=== PATIENT | male | born 1935 | race Caucasian/White ===

== ENCOUNTER 2016-11-11 08:56 | Day surgery (SDC) | payer MEDICARE, BC ==
[~2016-11-11 08:56] MED LIST: FLU Vacc QS 2017-18 (6mos UP)/PF 60 MCG/0.5 ML Syringe IM ONE; Metoclopramide 10 MG/2 ML SDV IV PRN; Sodium Chloride 0.9% 1,000 ML IV SCH; Sodium Chloride 0.9% 10 ML Syringe FLUSH PRN
[2016-11-11] MEDS ORDERED: Propofol 200 MG/20 ML SDV ONE (10:35)
[2016-11-11 11:24] VITALS: BP 138/80
--- NOTE | 2016-11-11 15:01 | OR ---
DATE OF OPERATION: 11/11/2016 PREOPERATIVE DIAGNOSIS: Colon cancer screening. POSTOPERATIVE DIAGNOSIS: Colon cancer screening. PROCEDURE: Colonoscopy with biopsy and polypectomy. ANESTHESIA: MAC. ESTIMATED BLOOD LOSS: Minimal. COMPLICATIONS: None. INDICATIONS FOR PROCEDURE: The patient is an 81-year-old male, who has had history of weight loss over the past 6 months. The patient otherwise denies any change in bowel habits. Last had colonoscopy approximately 10 years ago, which was normal per patient. DESCRIPTION OF PROCEDURE: Informed consent was obtained from the patient. The patient was taken to the operating room, placed on the tablet in left lateral decubitus position. Monitored anesthesia care was applied. Digital rectal exam revealed no rectal masses, good tone. Colonoscope was then advanced through the anus and directed towards the cecum. Did reach the cecum identified by the appendiceal orifice and ileocecal valve. The patient did have a small sessile polyp near the ileocecal valve, which was removed with cold forceps polypectomy. Colonoscope was then withdrawn. 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 No other masses. No polyps. No areas of inflammation or ischemia were identified. Random rectal biopsy was taken in the rectum. Retroflexion was performed in the rectum and was unremarkable. Colonoscope was then removed. 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 RECOMMENDATIONS: We will follow up biopsies and recommend repeat colonoscopy in 5 years due to polyp. MARIZA /[id number]
== END 2016-11-11 12:30 | disposition home or self-care (01) ==
LOC: LB.SDS 08:56
PROVIDERS: ATTEND Surgery
DX: Z12.11 Encounter for screening for malignant neoplasm of colon (principal); K63.5 Polyp of colon; K63.89 Other specified diseases of intestine; Z88.0 Allergy status to penicillin; Z79.4 Long term (current) use of insulin; Z79.899 Other long term (current) drug therapy
CPT/HCPCS: 45380; 88305; J2704; J7040

== ENCOUNTER 2017-03-24 18:34 | Emergency (ER) | payer MEDICARE, BC ==
--- NOTE | 2017-03-24 19:36 | EDM.PDOC ---
ED HPI GENERAL MEDICAL PROBLEM - General Chief Complaint: General Stated Complaint: WEAKNESS Time Seen by Provider: 03/24/17 19:25 Source of Information: Reports: Patient History Limitations: Reports: No Limitations - History of Present Illness INITIAL COMMENTS - FREE TEXT/NARRATIVE: 81 yr male presents with a fall outside of his home. States he was going down 4 stairs at home and kind of just sat down. States no pain after his fall. States he take Methotrexate for arthritis. States he has been feeling dizzy for last couple of days and did have some cough and congestion for a couple weeks. - Related Data Allergies Allergy/AdvReac Type Severity Reaction Status Date / Time No Known Allergies Allergy Verified 11/10/16 16:14 Home Meds: Home Meds Methotrexate [Methotrexate] 1 injection IM WEEKLY 11/10/16 [History] Past Medical History HEENT History: Reports: Impaired Vision Musculoskeletal History: Reports: Arthritis - Infectious Disease History Infectious Disease History: Reports: Chicken Pox - Past Surgical History GI Surgical History: Reports: Colonoscopy, Hernia Repair/Other, Polypectomy Musculoskeletal Surgical History: Reports: None Social & Family History - Family History Family Medical History: Noncontributory - Tobacco Use Smoking Status *Q: Never Smoker - Caffeine Use Caffeine Use: Reports: None - Recreational Drug Use Recreational Drug Use: No ED ROS GENERAL - Review of Systems Review Of Systems: See Below Constitutional: Reports: Weakness HEENT: Reports: Glasses Respiratory: Reports: Cough Cardiovascular: Reports: No Symptoms GI/Abdominal: Reports: No Symptoms Musculoskeletal: Reports: Other (states no pain from fall) Skin: Reports: No Symptoms Neurological: Reports: Weakness, Other (States he tends to fall forward or gets a little dizzy with sitting up.) ED EXAM, GENERAL - Physical Exam Exam: See Below Exam Limited By: No Limitations General Appearance: Alert, No Apparent Distress Ears: Normal Canal, Hearing Grossly Normal, Normal TMs Throat/Mouth: Normal Voice, No Airway Compromise Head: Atraumatic, Normocephalic Neck: Normal Inspection, Supple, Non-Tender Respiratory/Chest: No Respiratory Distress, Lungs Clear, Normal Breath Sounds, Other (dry hacky cough noted) Cardiovascular: Regular Rate, Rhythm GI/Abdominal: Soft, Non-Tender Extremities: Normal Range of Motion, Non-Tender, No Pedal Edema Neurological: Alert, Oriented, Normal Cognition Course - Orders/Labs/Meds Orders: Active Orders 24 hr Category Date Time Status Chest 2V [CR] Stat Exams 03/24/17 19:31 Taken UA W/MICROSCOPIC [URIN] Stat Lab 03/24/17 20:47 Ordered Labs: Laboratory Tests 03/24/17 03/24/17 Range/Units 20:05 20:05 WBC 7.5 (4.0-11.0) K/uL RBC 4.32 L (4.50-6.50) M/uL Hgb 13.8 (13.0-18.0) g/dL Hct 41.1 (40.0-54.0) % MCV 95 (76-96) fL MCH 31.9 (27.0-32.0) pg MCHC 33.6 (31.0-35.0) g/dL RDW 13.7 (11.0-16.0) % Plt Count 194 (150-400) K/uL MPV 8.6 (6.0-10.0) fL Neut % (Auto) 83.6 H (45.0-70.0) % Lymph % (Auto) 6.7 L (20.0-40.0) % [place] % (Auto) 8.9 (3.0-10.0) % Eos % (Auto) 0.7 L (1.0-5.0) % Baso % (Auto) 0.1 (0.0-0.5) % Neut # (Auto) 6.23 (2.00-7.50) K/uL Lymph # (Auto) 0.50 L (1.50-4.00) K/uL [place] # (Auto) 0.66 (0.20-0.80) K/uL Eos # (Auto) 0.05 (0.04-0.40) K/uL Baso # (Auto) 0.01 L (0.02-0.10) K/uL Sodium 139 (136-145) mmol/L Potassium 4.2 (3.5-5.1) mmol/L Chloride 103 (98-107) mmol/L Carbon Dioxide 26.6 (21.0-32.0) mmol/L Anion Gap 13.6 (5.0-15.0) mmol/L BUN 13 (8-26) mg/dL Creatinine 1.16 D (0.70-1.30) mg/dL Est Cr Clr Drug Dosing TNP Estimated GFR (MDRD) > 60 (>60) MLS/MIN BUN/Creatinine Ratio 11.2 (6-25) Glucose 112 H (74-100) mg/dL Calcium 8.9 (8.5-10.1) mg/dL Total Bilirubin 0.6 (0.0-1.0) mg/dL AST 21 (15-37) U/L ALT 15 (12-78) U/L Alkaline Phosphatase 65 (46-116) U/L Total Protein 7.5 (6.4-8.2) g/dL Albumin 3.6 (3.4-5.0) g/dL Globulin 3.9 (2.2-4.2) g/dL Albumin/Globulin Ratio 0.9 (0.8-2.0) - Re-Assessments/Exams Free Text/Narrative Re-Assessment/Exam: 03/24/17 20:55 Chest x-ray completed and results viewed with comparison to previous x-ray. Good expansion noted. Lab results reviewed with no elevation in WBC, hgb normal and CMP normal. 03/24/17 21:02 Urine sample is without infection noted. Some ketones noted. Recommend taking Tylenol for temperature. Increase fluids and try to have more frequent snacks or meals or ensure. RTC next week for follow-up or sooner if symptoms increase or worsen. Departure - Departure Time of Disposition: 21:00 Disposition: Home, Self-Care 01 Condition: Good Clinical Impression: Dizziness, Fall (on) (from) other stairs and steps, initial encounter - Discharge Information Referrals: PCP,None [Primary Care Provider] - Forms: ED Department Discharge - My Orders Last 24 Hours: My Active Orders 03/24/17 19:31 Chest 2V [CR] Stat 03/24/17 20:47 UA W/MICROSCOPIC [URIN] Stat - Assessment/Plan Last 24 Hours: My Active Orders 03/24/17 19:31 Chest 2V [CR] Stat 03/24/17 20:47 UA W/MICROSCOPIC [URIN] Stat
--- NOTE | 2017-03-25 09:02 | CR ---
DATE OF SERVICE: 03/24/17 CLINICAL DATA: cough PA AND LATERAL CHEST: Comparison is made to a prior exam dated 07/01/16. The heart size is normal. The aorta is calcified and ectatic. The pulmonary vasculature does appear mildly prominent suggesting mild pulmonary venous congestion or fluid overload. There are scattered reticular opacities throughout both lungs. There are subtle nodular densities within the right mid lung laterally. Chest CT is recommended to further evaluate these. The lungs are otherwise clear. No pneumothorax. No pleural effusions. [id number] [facility]
== END 2017-03-24 21:02 | disposition home or self-care (01) ==
LOC: LB.ED 18:34
DX: R42 Dizziness and giddiness (principal); W10.9XXA Fall (on) (from) unspecified stairs and steps, initial encounter
CPT/HCPCS: 36415; 71046; 80053; 81001; 85025; 99285; A0425; A0429

== ENCOUNTER 2017-03-25 19:05 | Inpatient (IN) | payer MEDICARE, BC ==
[2017-03-25] MEDS ORDERED: Sodium Chloride 0.9% 1,000 ML IV SCH (20:30)
--- NOTE | 2017-03-25 20:44 | EDM.PDOC ---
ED HPI GENERAL MEDICAL PROBLEM - General Chief Complaint: General Stated Complaint: fell at home Time Seen by Provider: 03/25/17 19:30 Source of Information: Reports: Patient, EMS, Family History Limitations: Reports: No Limitations - History of Present Illness INITIAL COMMENTS - FREE TEXT/NARRATIVE: This is an 81yo M who fell and was unable to get back up. Patient is alert and oriented but when he gets up he feels weak and his legs give away. He was in the ER last night for the same symptoms. Tonight he is worse and has a fever. Patient denies any injury, no pain, no shortness of breath, no chest pain no other symptoms but weakness. He states his symptoms have been ongoing for about 1 week. Onset: Gradual Duration: Week(s): (1), Getting Worse Location: Reports: Generalized Severity: Severe Improves with: Reports: None Worsens with: Reports: Movement Associated Symptoms: Reports: Fever/Chills - Related Data Allergies Allergy/AdvReac Type Severity Reaction Status Date / Time No Known Allergies Allergy Verified 03/25/17 19:24 Home Meds: Home Meds Methotrexate [Methotrexate] 1 injection IM WEEKLY 11/10/16 [History] Past Medical History HEENT History: Reports: Impaired Vision, Other (See Below) Other HEENT History: wears glasses Cardiovascular History: Reports: None Respiratory History: Reports: Pneumonia, Recurrent Gastrointestinal History: Reports: Other (See Below) Other Gastrointestinal History: Having constipation for a couple of months now Genitourinary History: Reports: None Musculoskeletal History: Reports: Arthritis Endocrine/Metabolic History: Reports: None Hematologic History: Reports: None - Infectious Disease History Infectious Disease History: Reports: Chicken Pox, Measles - Past Surgical History GI Surgical History: Reports: Colonoscopy, Hernia Repair/Other, Polypectomy Musculoskeletal Surgical History: Reports: None Social & Family History - Family History Family Medical History: Noncontributory - Tobacco Use Smoking Status *Q: Never Smoker Second Hand Smoke Exposure: No - Caffeine Use Caffeine Use: Reports: Coffee, Soda, Tea - Recreational Drug Use Recreational Drug Use: No ED ROS GENERAL - Review of Systems Review Of Systems: ROS reveals no pertinent complaints other than HPI. ED EXAM, GENERAL - Physical Exam Exam: See Below Exam Limited By: No Limitations General Appearance: Alert, WD/WN, No Apparent Distress Eye Exam: Bilateral Eye: EOMI, PERRL Ears: Normal External Exam Nose: Normal Inspection Throat/Mouth: Normal Inspection Head: Atraumatic, Normocephalic Neck: Normal Inspection, Supple, Non-Tender Respiratory/Chest: No Respiratory Distress, Decreased Breath Sounds, Rales Cardiovascular: Normal Peripheral Pulses, Regular Rate, Rhythm Peripheral Pulses: 2+: Dorsalis Pedis (L), Dorsalis Pedis (R) GI/Abdominal: Normal Bowel Sounds Back Exam: Normal Inspection Extremities: Normal Inspection, Normal Range of Motion, Non-Tender, No Pedal Edema, Normal Capillary Refill Neurological: Alert, Oriented, CN II-XII Intact, Other (weakness on standing, decrease in oxygen saturation) Psychiatric: Normal Affect, Normal Mood Skin Exam: Warm, Dry, Intact Course - Orders/Labs/Meds Orders: Active Orders 24 hr Category Date Time Status Patient Status [ADT] Routine ADT 03/25/17 20:33 Ordered Bedrest Bedside Commode [RC] ASDIRECTED Care 03/25/17 20:33 Ordered EKG Documentation Completion [RC] ASDIRECTED Care 03/25/17 19:33 Active Height and Weight [RC] DAILY Care 03/25/17 20:33 Ordered Intake and Output [RC] QSHIFT Care 03/25/17 20:34 Ordered Oxygen Therapy [RC] PRN Care 03/25/17 20:33 Ordered Vital Signs [RC] Q4H Care 03/25/17 20:33 Ordered Heart Healthy Diet [DIET] Diet 03/25/17 Breakfast Ordered Chest 1V Frontal [CR] Stat Exams 03/25/17 19:16 Taken UA W/MICROSCOPIC [URIN] Stat Lab 03/25/17 19:16 Uncollected Dextrose 5%-Lactated Ringers @ 75 MLS/HR(1000ml) Med 03/25/17 20:45 Ordered Dextrose 5%-Lactated Ringers 1,000 ml IV ASDIRECTED EKG 12 Lead [EK] Routine Ther 03/25/17 19:33 Ordered Medication Orders Dextrose/Lactated Ringer's (Dextrose 5%-Lactated Ringers) 1,000 mls @ 75 mls/ hr IV ASDIRECTED [facility] Labs: Laboratory Tests 03/25/17 03/25/17 03/25/17 Range/Units 19:25 19:25 20:08 WBC 7.6 (4.0-11.0) K/uL RBC 4.24 L (4.50-6.50) M/uL Hgb 13.5 (13.0-18.0) g/dL Hct 40.5 (40.0-54.0) % MCV 96 (76-96) fL MCH 31.8 (27.0-32.0) pg MCHC 33.3 (31.0-35.0) g/dL RDW 13.7 (11.0-16.0) % Plt Count 192 (150-400) K/uL MPV 8.4 (6.0-10.0) fL Neut % (Auto) 87.0 H (45.0-70.0) % Lymph % (Auto) 5.7 L (20.0-40.0) % [place] % (Auto) 7.1 (3.0-10.0) % Eos % (Auto) 0.1 L (1.0-5.0) % Baso % (Auto) 0.1 (0.0-0.5) % Neut # (Auto) 6.58 (2.00-7.50) K/uL Lymph # (Auto) 0.43 L (1.50-4.00) K/uL [place] # (Auto) 0.54 (0.20-0.80) K/uL Eos # (Auto) 0.01 L (0.04-0.40) K/uL Baso # (Auto) 0.01 L (0.02-0.10) K/uL Sodium 140 (136-145) mmol/L Potassium 3.9 (3.5-5.1) mmol/L Chloride 103 (98-107) mmol/L Carbon Dioxide 26.5 (21.0-32.0) mmol/L Anion Gap 14.4 (5.0-15.0) mmol/L BUN 15 (8-26) mg/dL Creatinine 1.18 (0.70-1.30) mg/dL Est Cr Clr Drug Dosing TNP Estimated GFR (MDRD) 59 L (>60) MLS/MIN BUN/Creatinine Ratio 12.7 (6-25) Glucose 138 H (74-100) mg/dL Calcium 9.0 (8.5-10.1) mg/dL Total Bilirubin 0.6 (0.0-1.0) mg/dL AST 33 (15-37) U/L ALT 19 (12-78) U/L Alkaline Phosphatase 60 (46-116) U/L Troponin I < 0.017 (0.000-0.060) ng/mL B-Natriuretic Peptide 409 (0-450) pg/mL Total Protein 7.4 (6.4-8.2) g/dL Albumin 3.5 (3.4-5.0) g/dL Globulin 3.9 (2.2-4.2) g/dL Albumin/Globulin Ratio 0.9 (0.8-2.0) Meds: Medications Generic Name Dose Route Start Last Admin Trade Name Freq PRN Reason Stop Dose Admin Dextrose/Lactated Ringer's 1,000 mls @ 75 mls/hr 03/25/17 20:45 Dextrose 5%-Lactated Ringers IV ASDIRECTED FEI Discontinued Medications Generic Name Dose Route Start Last Admin Trade Name Freq PRN Reason Stop Dose Admin Sodium Chloride 1,000 mls @ 75 mls/hr 03/25/17 20:30 03/25/17 20:15 Normal Saline IV 75 mls/hr ASDIRECTED FEI Administration Departure - Departure Time of Disposition: 21:00 Disposition: Admitted As Inpatient 65 Condition: Undetermined Clinical Impression: Influenza A, Weakness generalized, Dehydration Fall Qualifiers: Encounter type: initial encounter Qualified Code(s): W19.XXXA - Unspecified fall, initial encounter - Discharge Information Referrals: PCP,None [Primary Care Provider] - - My Orders Last 24 Hours: My Active Orders 03/25/17 19:16 Chest 1V Frontal [CR] Stat UA W/MICROSCOPIC [URIN] Stat 03/25/17 19:33 EKG Documentation Completion [RC] ASDIRECTED EKG 12 Lead [EK] Routine 03/25/17 20:33 Patient Status [ADT] Routine Bedrest Bedside Commode [RC] ASDIRECTED Height and Weight [RC] DAILY Oxygen Therapy [RC] PRN Vital Signs [RC] Q4H 03/25/17 20:34 Intake and Output [RC] QSHIFT 03/25/17 20:45 Dextrose 5%-Lactated Ringers @ 75 MLS/HR(1000ml) Dextrose 5%-Lactated Ringers 1 ,000 ml IV ASDIRECTED 03/25/17 Breakfast Heart Healthy Diet [DIET] - Assessment/Plan Last 24 Hours: My Active Orders 03/25/17 19:16 Chest 1V Frontal [CR] Stat UA W/MICROSCOPIC [URIN] Stat 03/25/17 19:33 EKG Documentation Completion [RC] ASDIRECTED EKG 12 Lead [EK] Routine 03/25/17 20:33 Patient Status [ADT] Routine Bedrest Bedside Commode [RC] ASDIRECTED Height and Weight [RC] DAILY Oxygen Therapy [RC] PRN Vital Signs [RC] Q4H 03/25/17 20:34 Intake and Output [RC] QSHIFT 03/25/17 20:45 Dextrose 5%-Lactated Ringers @ 75 MLS/HR(1000ml) Dextrose 5%-Lactated Ringers 1 ,000 ml IV ASDIRECTED 03/25/17 Breakfast Heart Healthy Diet [DIET]
[2017-03-25] MEDS: Oseltamivir 75 MG Cap PO SCH (22:41)
[2017-03-26] MEDS ORDERED: Acetaminophen 500 MG Tab PO ONE (00:27)
[2017-03-26] MEDS: Oseltamivir 75 MG Cap PO SCH ×2 (08:08→19:37)
--- NOTE | 2017-03-26 10:52 | CR ---
DATE OF SERVICE: 03/25/17 CLINICAL DATA: temp PA CHEST: Comparison made to a prior exam dated 03/24/17. The heart size is stable. There are densities in both lung bases on today's exam consistent with basilar atelectasis or infiltrate. Pneumonia should be considered. There are also subtle nodular densities in the right mid lung laterally. Again, these could be related to pneumonia. Followup exam is recommended to see if they resolve. The exam is otherwise unchanged from the prior. No pneumothorax. No pleural effusion. [id number] [facility]
--- NOTE | 2017-03-26 12:10 | PCM.PN ---
- General Info Date of Service: 03/26/17 Subjective Update: Patient states he feels better. He remains weak in bed. He denies any pain or malaise. He states he just feels weak. No other symptoms, no fever, no chest pain, no shortness of breath. Functional Status: Reports: Pain Controlled, Tolerating Diet - Review of Systems General: Reports: Weakness HEENT: Reports: No Symptoms Pulmonary: Reports: No Symptoms Cardiovascular: Reports: No Symptoms Gastrointestinal: Reports: No Symptoms Genitourinary: Reports: No Symptoms Musculoskeletal: Reports: No Symptoms Neurological: Reports: No Symptoms Psychiatric: Reports: No Symptoms - Patient Data Vitals - Most Recent: Last Vital Signs Temp 36.9 C 03/26/17 08:00 Pulse 59 L 03/26/17 08:00 Resp 20 03/26/17 08:00 BP 107/60 03/26/17 08:00 Pulse Ox 93 L 03/26/17 08:00 Weight - Most Recent: 64.864 kg I&O - Last 24 Hours: Intake & Output 03/25/17 03/26/17 03/26/17 22:59 06:59 14:59 Intake Total 900 Output Total 300 Balance 600 Lab Results Last 24 Hours: Laboratory Results - last 24 hr 03/25/17 Range/Units 21:35 Urine Color Yellow Urine Appearance Clear (CLEAR) Urine pH 6.5 (5.0-8.0) Ur Specific [place] 1.020 (1.003-1.030) Urine Protein Negative (NEGATIVE) mg/dL Urine Glucose (UA) Negative (NEGATIVE) mg/dL Urine Ketones 15 H (NEGATIVE) mg/dL Urine Occult Blood Negative (NEGATIVE) Urine Nitrite Negative (NEGATIVE) Urine Bilirubin Negative (NEGATIVE) Urine Urobilinogen 0.2 (0.2-1.0) E.U./dL Ur Leukocyte Esterase Negative (NEGATIVE) Urine RBC Not seen /HPF Urine WBC 0-5 H /HPF Ur Squamous Epith Cells Moderate /HPF Med Orders - Current: Current Medications Dextrose/Lactated Ringer's (Dextrose 5%-Lactated Ringers) 1,000 mls @ 75 mls/ hr IV ASDIRECTED FEI Oseltamivir Phosphate (Tamiflu) 75 mg PO BID FEI Last Admin: 03/26/17 08:08 Dose: 75 mg Discontinued Medications Acetaminophen (Tylenol Extra Strength) 500 mg PO ONETIME ONE Stop: 03/26/17 00:28 Last Admin: 03/26/17 00:33 Dose: 500 mg Sodium Chloride (Normal Saline) 1,000 mls @ 75 mls/hr IV ASDIRECTED [facility] Last Admin: 03/25/17 20:15 Dose: 75 mls/hr - Exam Quality Assessment: Supplemental Oxygen General: Alert, Oriented, Cooperative HEENT: Pupils Equal, Pupils Reactive, EOMI Neck: Supple Lungs: Clear to Auscultation, Normal Respiratory Effort Cardiovascular: Regular Rate, Regular Rhythm Back Exam: Normal Inspection Extremities: Normal Inspection Peripheral Pulses: 2+: Dorsalis Pedis (L), Dorsalis Pedis (R) Skin: Warm, Dry, Intact Neurological: No New Focal Deficit Psy/Mental Status: Alert, Normal Affect, Normal Mood - Problem List & Annotations (1) Dehydration SNOMED Code(s): 90724266 Code(s): E86.0 - DEHYDRATION Status: Acute (2) Dizziness SNOMED Code(s): 629880523 Code(s): R42 - DIZZINESS AND GIDDINESS Status: Acute (3) Fall SNOMED Code(s): 4921105 Code(s): W19.XXXA - UNSPECIFIED FALL, INITIAL ENCOUNTER Status: Acute Qualifiers: Encounter type: initial encounter Qualified Code(s): W19.XXXA - Unspecified fall, initial encounter (4) Influenza A SNOMED Code(s): 143051342 Code(s): J10.1 - FLU DUE TO OTH IDENT INFLUENZA VIRUS W OTH RESP MANIFEST Status: Acute (5) Weakness generalized SNOMED Code(s): 44108838 Code(s): R53.1 - WEAKNESS Status: Acute - Problem List Review Problem List Initiated/Reviewed/Updated: Yes - My Orders Last 24 Hours: My Active Orders 03/25/17 20:45 Dextrose 5%-Lactated Ringers 1,000 ml IV ASDIRECTED Oseltamivir [Tamiflu] 75 mg PO BID 03/25/17 21:03 Urinary Catheter Assessment [RC] ASDIRECTED 03/25/17 21:15 Insert Fernandez Catheter [Insert Urinary Catheter] [OM.PC] Q24H 03/26/17 12:09 PT Evaluation and Treatment [CONS] Routine BASIC METABOLIC PANEL,BMP [CHEM] Routine CBC WITH AUTO DIFF [HEME] Routine - Plan Plan:: Patient will be continued on IVF. We will continue to monitor vitals. Gradual wean off oxygen. PT/OT evaluation of ambulation and ADLs. Signed out to Felix today.
[2017-03-26] MEDS: Dextrose 5%-Lactated Ringers 1,000 ML IV SCH (18:43)
[2017-03-26] MEDS ORDERED: Acetaminophen 650 MG Tab.ER PO PRN (20:00)
[2017-03-27] MEDS: Dextrose 5%-Lactated Ringers 1,000 ML IV SCH (07:40)
[2017-03-27] MEDS: Oseltamivir 75 MG Cap PO SCH ×2 (08:00→21:27)
[2017-03-27] MEDS ORDERED: Bisacodyl 5 MG Tab PO PRN (08:00)
--- NOTE | 2017-03-27 21:21 | PN ---
DATE OF VISIT: 03/27/2017 HISTORY OF PRESENT ILLNESS: The patient was admitted a couple of days ago. He had been falling. He was seen in the emergency room twice. He ended up with a positive for influenza and he has been inpatient here for a couple of days. His condition has been improving. The patient still is weak. Physical therapy is in the process of working with him and when they clear him as far as ambulation and he weaned off the O2. He would be about the time for discharge. The patient when entering the room this morning, states he feels okay, slightly weak. He is wanting he get up more. He has been in bed so much that he feels sore. PHYSICAL EXAMINATION: VITAL SIGNS: Today revealed he has a low-grade temp of 99.4 degrees. LUNGS: Clear. CARDIAC: Heart sounds distinct without murmurs. ABDOMEN: Soft, nontender. SKIN: Warm and dry. TREATMENT PLAN: We will try slightly more activity. The patient is going to be up and sitting in a chair with transferring with assistance, and he can also use bathroom privileges with nursing assistance. This has went fairly well today. They have been using a walker as well when he goes to the bathroom. He has not complained of any dizziness, but states he still does feel tired. Overall, the patient's condition is slowly improving. CRS/MODL /[id number]
[2017-03-28] MEDS ORDERED: Oseltamivir 75 MG Cap ONE (08:00)
[2017-03-28] MEDS: Oseltamivir 75 MG Cap PO SCH (10:13)
--- NOTE | 2017-03-28 12:25 | DISCH ---
HISTORY OF PRESENT ILLNESS: An 81-year-old male who is an inpatient here with complications due to influenza. He was having episodes of weakness and falling. The patient has been doing well since admission. His condition is definitely improved since yesterday. His temperature is just running slightly above normal in the 99 range. The patient's appetite is good. He has been eating everything. He has been drinking fluids well. He had a large bowel movement today. He has been walking good with a walker without assistance. When I saw the patient today, he was sitting up after eating breakfast. He looks better than yesterday. He states he is not having any pain or trouble breathing. Vital signs are reviewed. The patient's blood pressure is good today. PHYSICAL EXAMINATION: LUNGS: Clear. CARDIAC: Heart sounds distinct without murmurs. Skin: Warm and dry. ABDOMEN: Soft, nontender. Bowel sounds are present. At this point, we discontinued the IV. We had the patient walk around the room with a walker. He did this well. He is not shaky or unsteady. The patient feels fine after he walked around the room and sat down again. At this point, we can prepare the patient for discharge today. The IV is discontinued. We will make sure he has enough Tamiflu tablets to finish his 5 day course. He is to go home and rest, moving around the house as tolerated and until his condition symptoms completely resolved. The patient and his have no further questions and agree with the treatment plan. CRS/MODL /[id number]
[2017-03-28 15:28] VITALS: BP 113/54
== END 2017-03-28 14:30 | disposition home or self-care (01) | DRG 866 ==
LOC: LB.ED 19:05 → LB.MS 20:33 → OBSVTOIN 20:34 → LB.MS 20:34 → UNDOADMOB 20:45
PROVIDERS: ADMIT Family Medicine; ATTEND Family Medicine
DX: J10.89 Influenza due to other identified influenza virus with other manifestations (principal); R53.1 Weakness; E86.0 Dehydration; Z91.81 History of falling; W19.XXXA Unspecified fall, initial encounter; Y92.009 Unspecified place in unspecified non-institutional (private) residence as the place of occurrence of the external cause; R50.9 Fever, unspecified; M19.90 Unspecified osteoarthritis, unspecified site; Z87.01 Personal history of pneumonia (recurrent); H54.7 Unspecified visual loss
CPT/HCPCS: 36415; 51702; 71045; 80048; 80053; 81001; 83880; 84484; 85025; 87804; 93005; 97161-GP; 97530-GP; 99285-25; A0425; A0429; A9270-GY; J7040; J7042

== ENCOUNTER 2017-07-07 16:05 | Emergency (ER) | payer MEDICARE, BC ==
[2017-07-07] MEDS ORDERED: Sodium Chloride 0.9% 500 ML IV ONE (17:39)
[2017-07-07 19:58] VITALS: BP 169/99
--- NOTE | 2017-07-08 00:05 | ER ---
DATE OF SERVICE: 07/07/2017 HPI: An 82-year-old male who comes in with his and daughter with complaints of weakness and feeling off balance. He has had episodes of dizziness, usually when he changes positions such as standing up. He states that he has had some of these symptoms for a while, but lately it has gotten much worse. The patient denies any falls or injuries. He has not passed out. He has recently started taking Aricept, but tells me that he has forgotten to take it or has chosen not to take it in the last couple of days, thinking maybe this was causing some of his symptoms. The patient denies any problems with chest pain, coughing, shortness of breath, wheezing, or feeling sick. He states when he is laying down and resting, he feels fine. The patient was seen for physical a couple of weeks ago on 06/25/2017. The labs were done at that time, which were normal. The patient has no history of coronary artery disease. CURRENT MEDICATIONS: Include methotrexate for rheumatoid arthritis and Aricept again recently started. OBJECTIVE: GENERAL APPEARANCE: The patient is awake and alert. No obvious distress. VITAL SIGNS: Reviewed. Initial blood pressure 152/85, pulse of 57, he is afebrile, O2 sats are 97%. Physical exam, eyes, pupils equal, round, and reactive to light. EOMs are roughly intact. Ears, TMs are normal. Nares are patent. Oral mucous membranes moist. Tonsils are not enlarged or injected. Pharynx not inflamed. Neck: Supple. Lungs: Clear. Cardiac: Heart sounds distinct. S1, S2 present. Regular rhythm, but does seem somewhat slow, I am getting a reading around 50 at this time. ABDOMEN: Soft, nontender. SKIN: Warm and dry. INITIAL LABS: Include a CBC, CMP, and UA. Test results are normal. At this point, the patient was given a bolus of 500 mL of normal saline. He was assisted up to a standing position to use the bathroom after receiving the IV fluids, and he was quite lightheaded, this did resolve after about a minute. The patient was able to use the restroom without any further lightheadedness or dizziness. At this point, orthostatic blood pressures were taken in the standing position. His blood pressure went up to 190/86, pulse was 44 and that was in sitting; standing position, blood pressure 170/96 with a pulse at 59; lying down, the blood pressure 155/96, pulse of 45. DIAGNOSIS: Symptomatic bradycardia. TREATMENT PLAN: I did consult with Dr. Velasquez, cutting tool sharpener, in [place] with the following. We will stop the Aricept. The patient will be given a 24-hour Holter monitor. This will be applied tonight, and the patient will be scheduled for an echocardiogram, which I feel we can do tomorrow. The patient is to not do any driving, just light duty activities as tolerated, and changing positions very slowly and carefully. He does have family members at home including his and daughter who can help monitor the patient. The patient was cautioned that if he has any syncopal episodes or near syncopal episodes, they need to call 911 and bring him in, at which point, he would be stabilized and transferred to [place]. It appears the patient will most likely end up with a pacemaker. The patient and his and daughter have no further questions and agree with the treatment plan. KAM/FRANCIS /[id number] MTDJoce
== END 2017-07-07 19:44 | disposition home or self-care (01) ==
LOC: LB.ED 16:05
DX: R00.1 Bradycardia, unspecified (principal); M06.9 Rheumatoid arthritis, unspecified
CPT/HCPCS: 36415; 80053; 81001; 85025; 93005; 93225; 93226; 96360; 99285; J7040

== ENCOUNTER 2017-07-07 21:19 | Emergency (ER) | payer MEDICARE, BC ==
[2017-07-08 00:21] VITALS: BP 161/80
--- NOTE | 2017-07-08 06:57 | ER ---
DATE OF SERVICE: 07/07/2017 HPI: This 82-year-old male comes back to the emergency room with ongoing symptoms of lightheadedness, dizziness, and unsteadiness with any type of activity around the house. I had seen him earlier this evening. He was diagnosed with symptomatic bradycardia. I did consult with Cardiology, Dr. Velasquez, from [place] in [place], and the patient was started on a 24-hour Holter monitor. We stopped his Aricept. He was told to just take it easy for a few days and further evaluation would be done after the results of the Holter were obtained. The patient and his tell me that things did not go well when he got home every time he tried to walk or even bend over to take off some clothes to go to bed, he became very lightheaded and unsteady. Upon returning to the emergency room, his vital signs initially revealed a pulse of 46, blood pressure 141/90, O2 sats are 95%, respirations are 18. The patient still denies any chest pain or pressure. He denies any trouble breathing, coughing, or shortness of breath. He states that when he lay still, he feels fine, any kind of movement seems to cause his symptoms to flare up. PHYSICAL EXAMINATION: LUNGS: Clear. CARDIAC: Heart sounds distinct with a bradycardic rhythm around 40 beats per minute. SKIN: Warm and dry. VITAL SIGNS: At one point, while watching the patient's vital signs, his pulse did drop into the mid 30s for just a few seconds and also did climb up into the 60 range for just a minute or so. Most of the time he has been in 40s, occasionally 50s. LAB AND XRAY: I repeated a BMP tonight. The potassium level is still good at 3.7. Troponin was done now with negative results. His TSH is normal at 3.5. I did consult with the hospitalist from [place]. They do not have available space to take this patient. I then contacted [facility] in [place], talking to their hospitalist auto parts counter person, Dr. Haynes. She accepted the patient and he was transferred from our facility by ground ambulance [facility]. The patient did not develop any type of symptoms. While at rest, he was comfortable with no chest pain or pressure. He was not nauseated and he was not having any respiratory symptoms. I did witness 3 episodes where his pulse dropped in the 30s, but mostly remained in the 40s and occasionally higher. DIAGNOSIS: Symptomatic bradycardia. CRS/MODL /[id number] MTDD
== END 2017-07-08 00:10 | disposition critical access hospital (66) ==
LOC: LB.ED 21:19
DX: R00.1 Bradycardia, unspecified (principal)
CPT/HCPCS: 36415; 80048; 84443; 84484; 93005; 99285-25

== ENCOUNTER 2017-07-14 10:24 | Inpatient (IN) | payer MEDICARE, BC ==
[2017-07-14] MEDS ORDERED: Tuberculin, PPD 5 Units/0.1 ML 1 ML MDV IDERM ONE (18:41)
[2017-07-14] MEDS ORDERED: METHOTREXATE IM SCH (19:00)
--- NOTE | 2017-07-14 20:20 | PCM.HP ---
H&P History of Present Illness - General Date of Service: 07/14/17 Admit Problem/Dx: Admission Diagnosis/Problem Admission Diagnosis/Problem Weakness S/P pacemaker placement Source of Information: Patient. No: RN History Limitations: Reports: No Limitations - History of Present Illness Initial Comments - Free Text/Narative: 82 yr male presents for Swing bed admission: S/P pacemaker insertion, weakness and activity restrictions X 4 weeks. Pt has a history of bradycardia and states the rate was down to 30. Pt states occasional light headedness. - Related Data Allergies/Adverse Reactions: Allergies Allergy/AdvReac Type Severity Reaction Status Date / Time No Known Allergies Allergy Verified 07/07/17 17:36 Home Medications: Home Meds Methotrexate 1 injection IM WEEKLY 11/10/16 [History] Folic Acid 1 mg PO BID 07/07/17 [History] Multivitamin [Multi-Vitamin Daily] 1 each PO DAILY 07/07/17 [History] [place]-3/DHA/Epa/Fish Oil [Fish Oil 1,000 mg Softgel] 1 each PO DAILY 07/07/17 [ History] Donepezil [Aricept] 5 mg PO BEDTIME 07/14/17 [History] amLODIPine Besylate [Norvasc] 5 mg PO DAILY 07/14/17 [History] Past Medical History HEENT History: Reports: Impaired Vision, Other (See Below) Other HEENT History: wears glasses Cardiovascular History: Reports: Pacemaker Other Cardiovascular History: Symptomatic Bradycardia Respiratory History: Reports: Pneumonia, Recurrent Gastrointestinal History: Reports: None Other Gastrointestinal History: Having constipation for a couple of months now Genitourinary History: Reports: Urinary Incontinence Other Genitourinary History: Occasional incontinence and frequency Musculoskeletal History: Reports: Osteoporosis, RA Neurological History: Reports: Alzheimers Disease, Other (See Below) Other Neuro History: dementia Psychiatric History: Reports: Dementia Endocrine/Metabolic History: Reports: None Hematologic History: Reports: None - Infectious Disease History Infectious Disease History: Reports: Chicken Pox, Measles - Past Surgical History HEENT Surgical History: Reports: None Respiratory Surgical History: Reports: None GI Surgical History: Reports: Colonoscopy, Hernia Repair/Other, Polypectomy Neurological Surgical History: Reports: None Musculoskeletal Surgical History: Reports: None Social & Family History - Family History Family Medical History: Noncontributory - Caffeine Use Caffeine Use: Reports: Soda, Tea H&P Review of Systems - Review of Systems: Review Of Systems: See Below General: Reports: Weakness HEENT: Reports: No Symptoms, Glasses Pulmonary: Reports: No Symptoms Cardiovascular: Reports: Lightheadedness. Denies: Chest Pain, Edema Gastrointestinal: Reports: No Symptoms Genitourinary: Reports: No Symptoms Musculoskeletal: Reports: No Symptoms Skin: Reports: Wound (Left chest wound from pacemaker insertion) Psychiatric: Reports: No Symptoms Neurological: Reports: No Symptoms Hematologic/Lymphatic: Reports: No Symptoms Immunologic: Reports: No Symptoms Exam - Exam Exam: See Below - Vital Signs Vital Signs: Last Vital Signs Temp 99 F 07/14/17 13:45 Pulse 75 07/14/17 13:45 Resp 16 07/14/17 13:45 BP 109/70 07/14/17 13:45 Pulse Ox 97 07/14/17 13:45 Weight: 140 lb - Exam General: Alert, Oriented HEENT: Conjunctiva Clear, Hearing Intact, Mucosa Moist & [place] Neck: Supple, Trachea Midline Lungs: Clear to Auscultation, Normal Respiratory Effort Cardiovascular: Regular Rate, Regular Rhythm, Other (pt has an immobilizer to chest and right arm to limit movement of arm.) GI/Abdominal Exam: Normal Bowel Sounds, Soft, Non-Tender, No Distention (Male) Exam: Deferred Rectal (Males) Exam: Deferred Back Exam: Normal Inspection Extremities: Normal Inspection, Normal Range of Motion, Non-Tender, No Pedal Edema, Other (weakness to upper extremities) Skin: Warm, Dry, Wound (right chest wound has steri-strips, Area is dry, clean and intact.) Neurological: Normal Speech Neuro Extensive - Mental Status: Alert, Oriented x3, Normal Mood/Affect, Normal Cognition Neuro Extensive - Motor, Sensory, Reflexes: Normal Gait Psychiatric: Alert, Normal Affect, Normal Mood - Problem List (1) Weakness SNOMED Code(s): 94557516 ICD Code: R53.1 - WEAKNESS Status: Acute Current Visit: Yes (2) Status post cardiac pacemaker procedure SNOMED Code(s): 919717199, 402148557, 315534954 ICD Code: Z95.0 - PRESENCE OF CARDIAC PACEMAKER Status: Acute Current Visit: Yes Problem List Initiated/Reviewed/Updated: Yes Orders Last 24hrs: Active Orders 24 hr Category Date Time Status Admission Status [Patient Status] [ADT] Routine ADT 07/14/17 17:02 Active OT Evaluation and Treatment [CONS] Routine Cons 07/14/17 17:59 Active PT Evaluation and Treatment [CONS] Routine Cons 07/14/17 17:59 Active Heart Healthy Diet [DIET] Diet 07/15/17 Breakfast Ordered Acetaminophen [Tylenol Extra Strength] Med 07/14/17 17:41 Active 500 mg PO Q6H PRN Donepezil [Aricept] Med 07/14/17 20:00 Active 5 mg PO BEDTIME Fish Oil/[place]-3 Fatty Acids [Fish Oil] Med 07/15/17 08:00 Active 1 gm PO DAILY Folic Acid Med 07/14/17 20:00 Active 1 mg PO BID Methotrexate [Methotrexate] Med 07/15/17 08:00 Pending 1 injection IM WEEKLY Multivitamins w-Iron/Ca/FA/Min [Thera M Plus] Med 07/15/17 08:00 Active 1 tab PO DAILY amLODIPine [Norvasc] Med 07/15/17 08:00 Active 5 mg PO DAILY Medication Orders Acetaminophen (Tylenol Extra Strength) 500 mg PO Q6H PRN PRN Reason: Pain Amlodipine Besylate (Norvasc) 5 mg PO DAILY [facility] Donepezil HCl (Aricept) 5 mg PO BEDTIME [facility] Fish Oil (Fish Oil) 1 gm PO DAILY [facility] Folic Acid (Folic Acid) 1 mg PO BID [facility] Multivitamins/Minerals (Thera M Plus) 1 tab PO DAILY [facility] Non-Formulary Medication (Methotrexate [Methotrexate]) 1 injection IM WEEKLY [facility] Assessment/Plan Comment:: weakness: PT and OT consult and stregthening. Pt to use call light for assist with ambulation r/t weakness. S/P pacemaker insertion: Wound assessment. Tylenol as needed for relief of pain.
[2017-07-14] MEDS: Folic Acid 1 MG Tab PO SCH (20:31)
[2017-07-14] MEDS: Donepezil 5 MG Tab PO SCH (20:31)
[2017-07-14] MEDS ORDERED: Ondansetron 4 MG Tab.DIS ONE (21:37)
[2017-07-15] MEDS ORDERED: Multivitamins with Iron/Calcium/Folic Acid/Minerals Tab PO SCH (08:00)
[2017-07-15] MEDS ORDERED: METHOTREXATE IM SCH (08:00)
[2017-07-15] MEDS: amLODIPine 5 MG Tab PO SCH (09:20)
[2017-07-15] MEDS: Folic Acid 1 MG Tab PO SCH ×2 (09:20→19:40)
[2017-07-15] MEDS: Fish Oil/Omega-3 Fatty Acids 1 Gm Cap PO SCH (09:21)
[2017-07-15] MEDS: Donepezil 5 MG Tab PO SCH (19:40)
[2017-07-16] MEDS: METHOTREXATE IM SCH ×2 (00:05→19:15)
[2017-07-16] MEDS ORDERED: Ondansetron 4 MG Tab.DIS ONE (08:48)
[2017-07-16] MEDS: Ondansetron 4 MG Tab.DIS PO PRN (08:53)
[2017-07-16] MEDS: amLODIPine 5 MG Tab PO SCH (09:21)
[2017-07-16] MEDS: Fish Oil/Omega-3 Fatty Acids 1 Gm Cap PO SCH (10:31)
[2017-07-16] MEDS: Folic Acid 1 MG Tab PO SCH ×2 (10:32→19:33)
[2017-07-16] MEDS: Multivitamins with Iron/Calcium/Folic Acid/Minerals Tab PO SCH (10:32)
--- NOTE | 2017-07-16 10:50 | PCM.PN ---
- General Info Date of Service: 07/16/17 Functional Status: Reports: Pain Controlled - Review of Systems General: Reports: Appetite (decrease) HEENT: Reports: No Symptoms Pulmonary: Reports: No Symptoms Cardiovascular: Reports: No Symptoms Gastrointestinal: Reports: No Symptoms Genitourinary: Reports: No Symptoms Musculoskeletal: Reports: No Symptoms Neurological: Reports: No Symptoms - Patient Data Vitals - Most Recent: Last Vital Signs Temp 36.4 C 07/16/17 08:32 Pulse 77 07/16/17 08:32 Resp 18 07/16/17 08:32 BP 109/75 07/16/17 09:21 Pulse Ox 94 L 07/16/17 08:32 Weight - Most Recent: 63.503 kg Lab Results Last 24 Hours: Laboratory Results - last 24 hr 07/16/17 07/16/17 07/16/17 Range/Units 08:55 08:55 08:55 WBC 8.8 (4.0-11.0) K/uL RBC 4.78 (4.50-6.50) M/uL Hgb 15.3 (13.0-18.0) g/dL Hct 44.9 (40.0-54.0) % MCV 94 (76-96) fL MCH 32.0 (27.0-32.0) pg MCHC 34.1 (31.0-35.0) g/dL RDW 13.9 (11.0-16.0) % Plt Count 134 L D (150-400) K/uL MPV 9.3 (6.0-10.0) fL Neut % (Auto) 70.8 H (45.0-70.0) % Lymph % (Auto) 19.2 L (20.0-40.0) % [place] % (Auto) 7.6 (3.0-10.0) % Eos % (Auto) 2.2 (1.0-5.0) % Baso % (Auto) 0.2 (0.0-0.5) % Neut # (Auto) 6.23 (2.00-7.50) K/uL Lymph # (Auto) 1.69 (1.50-4.00) K/uL [place] # (Auto) 0.67 (0.20-0.80) K/uL Eos # (Auto) 0.19 (0.04-0.40) K/uL Baso # (Auto) 0.02 (0.02-0.10) K/uL Sodium 139 (136-145) mmol/L Potassium 4.0 (3.5-5.1) mmol/L Chloride 103 (98-107) mmol/L Carbon Dioxide 26.5 (21.0-32.0) mmol/L Anion Gap 13.5 (5.0-15.0) mmol/L BUN 19 (8-26) mg/dL Creatinine 1.00 (0.70-1.30) mg/dL Est Cr Clr Drug Dosing 50.27 mL/min Estimated GFR (MDRD) > 60 (>60) MLS/MIN BUN/Creatinine Ratio 19.0 (6-25) Glucose 143 H (74-100) mg/dL Calcium 9.1 (8.5-10.1) mg/dL Total Bilirubin 1.0 D (0.0-1.0) mg/dL AST 25 (15-37) U/L ALT 35 (12-78) U/L Alkaline Phosphatase 59 (46-116) U/L Troponin I < 0.017 (0.000-0.060) ng/mL Total Protein 7.2 (6.4-8.2) g/dL Albumin 3.8 (3.4-5.0) g/dL Globulin 3.4 (2.2-4.2) g/dL Albumin/Globulin Ratio 1.1 (0.8-2.0) TSH, Ultra Sensitive 4.495 H (0.358-3.740) uIU/mL Med Orders - Current: Current Medications Acetaminophen (Tylenol Extra Strength) 500 mg PO Q6H PRN PRN Reason: Pain Amlodipine Besylate (Norvasc) 5 mg PO DAILY [facility] Last Admin: 07/16/17 09:21 Dose: 5 mg Donepezil HCl (Aricept) 5 mg PO BEDTIME [facility] Last Admin: 07/15/17 19:40 Dose: 5 mg Fish Oil (Fish Oil) 1 gm PO DAILY [facility] Last Admin: 07/16/17 10:31 Dose: 1 gm Folic Acid (Folic Acid) 1 mg PO BID [facility] Last Admin: 07/16/17 10:32 Dose: 1 mg Multivitamins/Minerals (Thera M Plus) 1 tab PO DAILY [facility] Last Admin: 07/16/17 10:32 Dose: 1 tab Non-Formulary Medication (Methotrexate [Methotrexate]) 1 injection IM We [facility] Last Admin: 07/16/17 00:05 Dose: Not Given Ondansetron HCl (Zofran Odt) 4 mg PO Q8H PRN PRN Reason: Nausea Last Admin: 07/16/17 08:53 Dose: 4 mg Senna/Docusate Sodium (Senna Plus) 1 tab PO DAILY [facility] Last Admin: 07/16/17 09:21 Dose: 1 tab Discontinued Medications Multivitamins/Minerals (Thera M Plus) 1 tab PO DAILY [facility] Last Admin: 07/15/17 09:20 Dose: 1 tab Non-Formulary Medication (Methotrexate [Methotrexate]) 1 injection IM WEEKLY [facility] Non-Formulary Medication (Methotrexate [Methotrexate]) 1 injection IM .WEEKLY [facility] Ondansetron HCl (Zofran Odt) Confirm Administered Dose 4 mg .ROUTE .STK-MED ONE Stop: 07/14/17 21:38 Last Admin: 07/14/17 21:50 Dose: 4 mg Ondansetron HCl (Zofran Odt) Confirm Administered Dose 4 mg .ROUTE .STK-MED ONE Stop: 07/16/17 08:49 Last Admin: 07/16/17 08:54 Dose: Not Given Tuberculin PPD (Aplisol) 5 unit IDERM ONETIME ONE Stop: 07/14/17 18:42 Last Admin: 07/15/17 17:05 Dose: 5 unit - Exam General: Alert, Oriented, Cooperative HEENT: Pupils Equal, Pupils Reactive, EOMI Neck: Supple Lungs: Clear to Auscultation, Normal Respiratory Effort Cardiovascular: Regular Rate, Regular Rhythm GI/Abdominal Exam: Normal Bowel Sounds, Soft, Non-Tender Back Exam: Normal Inspection Extremities: Normal Inspection, Normal Range of Motion - Problem List & Annotations (1) Status post cardiac pacemaker procedure SNOMED Code(s): 867611855, 277396740, 843925448 Code(s): Z95.0 - PRESENCE OF CARDIAC PACEMAKER Status: Acute Current Visit: Yes (2) Weakness SNOMED Code(s): 95209746 Code(s): R53.1 - WEAKNESS Status: Acute Current Visit: Yes (3) Weakness generalized SNOMED Code(s): 10490408 Code(s): R53.1 - WEAKNESS Status: Acute Current Visit: No - Problem List Review Problem List Initiated/Reviewed/Updated: Yes - My Orders Last 24 Hours: My Active Orders 07/16/17 09:14 Dietary Supplements [RC] BIDMEALS 07/16/17 09:26 Code Status [Resuscitation Status] Routine 07/16/17 10:45 REVERSE T3, SERUM Routine THYROXINE (T4) FREE, DIRECT, S Routine 07/16/17 Lunch High Protein Diet [DIET] - Plan Plan:: weakness: PT and OT consult and stregthening. Pt to use call light for assist with ambulation r/t weakness. S/P pacemaker insertion: Wound assessment. Tylenol as needed for relief of pain. 07/16/17 Patient labs reviewed - will check T3/T4 and reassess. Increased diet to include boost or ensure chocolate shake BID. Counseled on continued exercise PT/OT and ambulation.
[2017-07-16] MEDS: Donepezil 5 MG Tab PO SCH (19:33)
[2017-07-17] MEDS: Folic Acid 1 MG Tab PO SCH ×2 (08:35→19:39)
[2017-07-17] MEDS: amLODIPine 5 MG Tab PO SCH (08:35)
[2017-07-17] MEDS: Multivitamins with Iron/Calcium/Folic Acid/Minerals Tab PO SCH (08:36)
[2017-07-17] MEDS: Fish Oil/Omega-3 Fatty Acids 1 Gm Cap PO SCH (08:36)
[2017-07-17] MEDS: Donepezil 5 MG Tab PO SCH (19:39)
[2017-07-18] MEDS: amLODIPine 5 MG Tab PO SCH (07:58)
[2017-07-18] MEDS: Fish Oil/Omega-3 Fatty Acids 1 Gm Cap PO SCH (07:58)
[2017-07-18] MEDS: Multivitamins with Iron/Calcium/Folic Acid/Minerals Tab PO SCH (07:58)
[2017-07-18] MEDS: Folic Acid 1 MG Tab PO SCH ×2 (07:59→19:55)
[2017-07-18] MEDS: Donepezil 5 MG Tab PO SCH (19:55)
[2017-07-19] MEDS: Fish Oil/Omega-3 Fatty Acids 1 Gm Cap PO SCH (08:03)
[2017-07-19] MEDS: amLODIPine 5 MG Tab PO SCH (08:03)
[2017-07-19] MEDS: Multivitamins with Iron/Calcium/Folic Acid/Minerals Tab PO SCH (08:03)
[2017-07-19] MEDS: Folic Acid 1 MG Tab PO SCH ×2 (08:03→19:55)
[2017-07-19] MEDS: Donepezil 5 MG Tab PO SCH (19:55)
[2017-07-20] MEDS: Fish Oil/Omega-3 Fatty Acids 1 Gm Cap PO SCH (07:46)
[2017-07-20] MEDS: amLODIPine 5 MG Tab PO SCH (07:47)
[2017-07-20] MEDS: Folic Acid 1 MG Tab PO SCH ×2 (07:47→20:00)
[2017-07-20] MEDS: Multivitamins with Iron/Calcium/Folic Acid/Minerals Tab PO SCH (07:48)
[2017-07-20] MEDS ORDERED: Bisacodyl 10 MG Supp ONE (17:53)
[2017-07-20] MEDS: Donepezil 5 MG Tab PO SCH (20:00)
[2017-07-21] MEDS: Fish Oil/Omega-3 Fatty Acids 1 Gm Cap PO SCH (07:38)
[2017-07-21] MEDS: Folic Acid 1 MG Tab PO SCH ×2 (07:39→19:59)
[2017-07-21] MEDS: amLODIPine 5 MG Tab PO SCH (07:39)
[2017-07-21] MEDS: Multivitamins with Iron/Calcium/Folic Acid/Minerals Tab PO SCH (07:39)
[2017-07-21] MEDS: Donepezil 5 MG Tab PO SCH (19:59)
[2017-07-22] MEDS: Fish Oil/Omega-3 Fatty Acids 1 Gm Cap PO SCH (07:59)
[2017-07-22] MEDS: Folic Acid 1 MG Tab PO SCH ×2 (08:00→19:49)
[2017-07-22] MEDS: amLODIPine 5 MG Tab PO SCH (08:00)
[2017-07-22] MEDS: Multivitamins with Iron/Calcium/Folic Acid/Minerals Tab PO SCH (08:00)
--- NOTE | 2017-07-22 08:51 | PCM.PN ---
- General Info Date of Service: 07/22/17 Admission Dx/Problem (Free Text): Admission Diagnosis/Problem Admission Diagnosis/Problem Weakness S/P pacemaker placement Subjective Update: Mr Reed is feeling better, he had a few BM last night and states appetite is better today and is eating a good breakfast and taking Ensure bid. He and report he had the care conference yesterday for his Swing Bed admission. He is continuing to work with PT and OT for strengthening. He is up in his room with use of the walker and is independent with this. is reminding him to keep his arm restricted to ROM. states they are looking at an apartment in town tomorrow. and pt concerned with change in memory and limit of mini- mental exam per OT. Functional Status: Reports: Pain Controlled, Tolerating Diet, Ambulating, Urinating - Review of Systems General: Reports: Weakness HEENT: Reports: Glasses Pulmonary: Reports: No Symptoms Cardiovascular: Reports: No Symptoms. Denies: Chest Pain, Lightheadedness Gastrointestinal: Reports: Decreased Appetite. Denies: Abdominal Pain, Difficulty Swallowing Genitourinary: Reports: Incontinence. Denies: Dysuria Musculoskeletal: Reports: No Symptoms Skin: Reports: No Symptoms Neurological: Reports: Other (memory concerns). Denies: Dizziness, Headache, Change in Speech Psychiatric: Reports: No Symptoms - Patient Data Vitals - Most Recent: Last Vital Signs Temp 98.7 F 07/21/17 08:00 Pulse 66 07/21/17 08:00 Resp 16 07/21/17 08:00 BP 124/76 07/22/17 08:00 Pulse Ox 95 07/21/17 08:00 Weight - Most Recent: 137 lb Med Orders - Current: Current Medications Acetaminophen (Tylenol Extra Strength) 500 mg PO Q6H PRN PRN Reason: Pain Amlodipine Besylate (Norvasc) 5 mg PO DAILY [facility] Last Admin: 07/22/17 08:00 Dose: 5 mg Donepezil HCl (Aricept) 5 mg PO BEDTIME [facility] Last Admin: 07/21/17 19:59 Dose: 5 mg Fish Oil (Fish Oil) 1 gm PO DAILY [facility] Last Admin: 07/22/17 07:59 Dose: 1 gm Folic Acid (Folic Acid) 1 mg PO BID [facility] Last Admin: 07/22/17 08:00 Dose: 1 mg Multivitamins/Minerals (Thera M Plus) 1 tab PO DAILY [facility] Last Admin: 07/22/17 08:00 Dose: 1 tab Non-Formulary Medication (Methotrexate [Methotrexate]) 1 injection IM We [facility] Last Admin: 07/16/17 19:15 Dose: 1 injection Ondansetron HCl (Zofran Odt) 4 mg PO Q8H PRN PRN Reason: Nausea Last Admin: 07/16/17 08:53 Dose: 4 mg Senna/Docusate Sodium (Senna Plus) 1 tab PO BID [facility] Last Admin: 07/22/17 08:00 Dose: 1 tab Discontinued Medications Bisacodyl (Dulcolax) Confirm Administered Dose 10 mg .ROUTE .STK-MED ONE Stop: 07/20/17 17:54 Last Admin: 07/20/17 18:05 Dose: 10 mg Multivitamins/Minerals (Thera M Plus) 1 tab PO DAILY [facility] Last Admin: 07/15/17 09:20 Dose: 1 tab Non-Formulary Medication (Methotrexate [Methotrexate]) 1 injection IM WEEKLY [facility] Non-Formulary Medication (Methotrexate [Methotrexate]) 1 injection IM .WEEKLY [facility] Ondansetron HCl (Zofran Odt) Confirm Administered Dose 4 mg .ROUTE .STK-MED ONE Stop: 07/14/17 21:38 Last Admin: 07/14/17 21:50 Dose: 4 mg Ondansetron HCl (Zofran Odt) Confirm Administered Dose 4 mg .ROUTE .STK-MED ONE Stop: 07/16/17 08:49 Last Admin: 07/16/17 08:54 Dose: Not Given Senna/Docusate Sodium (Senna Plus) 1 tab PO DAILY [facility] Last Admin: 07/18/17 07:58 Dose: 1 tab Tuberculin PPD (Aplisol) 5 unit IDERM ONETIME ONE Stop: 07/14/17 18:42 Last Admin: 07/15/17 17:05 Dose: 5 unit - Exam General: Alert, Oriented, Cooperative, No Acute Distress HEENT: Pupils Equal, Pupils Reactive, Mucous Membr. Moist/[place] Neck: Supple, Trachea Midline, No JVD Lungs: Clear to Auscultation, Normal Respiratory Effort Cardiovascular: Regular Rate, Regular Rhythm. No: Murmurs GI/Abdominal Exam: Normal Bowel Sounds, Soft, Non-Tender (Male) Exam: Deferred Back Exam: Normal Inspection Extremities: Normal Inspection, Normal Range of Motion, Non-Tender, No Pedal Edema Skin: Warm, Dry, Intact Wound/Incisions: Other (steri-strips clean dry and intact to left upper chest.) Neurological: Normal Gait, Normal Speech, Strength Equal Bilateral, Other ( Please refer to OT notes for cognitive/ mini mental assessment.) Psy/Mental Status: Alert, Normal Affect, Normal Mood - Problem List & Annotations (1) Weakness SNOMED Code(s): 56933676 Code(s): R53.1 - WEAKNESS Status: Acute Current Visit: Yes (2) Status post cardiac pacemaker procedure SNOMED Code(s): 616862277, 974256265, 869513964 Code(s): Z95.0 - PRESENCE OF CARDIAC PACEMAKER Status: Acute Current Visit: Yes - Problem List Review Problem List Initiated/Reviewed/Updated: Yes - Plan Plan:: weakness: PT and OT consult and stregthening. Pt to use call light for assist with ambulation r/t weakness. S/P pacemaker insertion: Wound assessment. Tylenol as needed for relief of pain. 07/16/17 Patient labs reviewed - will check T3/T4 and reassess. Increased diet to include boost or ensure chocolate shake BID. Counseled on continued exercise PT/OT and ambulation. 07/22/2017 Pt is continuing with PT/OT for strengthening. Please refer to PT/ OT notes for this. Waiting for T3, T4 results. TSH result was elevated slightly. Dr Cool is out of the office this week and this SALES [employer]ER is following pt at this time. OT did review results of assessment with me. Pt has had changes with mini mental assessment from one month ago. Referral to neuropsych will be initiated. Pt and would prefer [facility] for this. Pt is scheduled for CT of chest next week for follow-up of nodules to lung and Dr Cool is following this for pt. Continue with ensure bid and diet as tolerated to assist with improving strength. Weight has been 136 and states his weight was down to 133. BP has been reviewed and pt continues with Amlodipine. He has had a few elevations of his BP. He has had a few readings of lower BP too. ANDREZ Motley states she did notice BP elevation, but states pt had been having a BM before this and was bearing down with having this BM. Will continue to monitor BP for now.
[2017-07-22] MEDS: METHOTREXATE IM SCH (18:00)
[2017-07-22] MEDS: Donepezil 5 MG Tab PO SCH (19:49)
[2017-07-23] MEDS: Ondansetron 4 MG Tab.DIS PO PRN (08:18)
[2017-07-23] MEDS: Fish Oil/Omega-3 Fatty Acids 1 Gm Cap PO SCH (09:07)
[2017-07-23] MEDS: amLODIPine 5 MG Tab PO SCH (09:08)
[2017-07-23] MEDS: Folic Acid 1 MG Tab PO SCH ×2 (09:08→20:44)
[2017-07-23] MEDS: Multivitamins with Iron/Calcium/Folic Acid/Minerals Tab PO SCH (09:08)
[2017-07-23] MEDS: Donepezil 5 MG Tab PO SCH (20:45)
[2017-07-24] MEDS: Multivitamins with Iron/Calcium/Folic Acid/Minerals Tab PO SCH (08:50)
[2017-07-24] MEDS: amLODIPine 5 MG Tab PO SCH (08:50)
[2017-07-24] MEDS: Folic Acid 1 MG Tab PO SCH ×2 (08:50→20:18)
[2017-07-24] MEDS: Fish Oil/Omega-3 Fatty Acids 1 Gm Cap PO SCH (08:50)
[2017-07-24] MEDS: Acetaminophen 500 MG Tab PO PRN (20:18)
[2017-07-24] MEDS: Donepezil 5 MG Tab PO SCH (20:18)
[2017-07-25] MEDS: Folic Acid 1 MG Tab PO SCH ×2 (08:18→19:40)
[2017-07-25] MEDS: Fish Oil/Omega-3 Fatty Acids 1 Gm Cap PO SCH (08:18)
[2017-07-25] MEDS: Multivitamins with Iron/Calcium/Folic Acid/Minerals Tab PO SCH (08:18)
[2017-07-25] MEDS: amLODIPine 5 MG Tab PO SCH (08:19)
[2017-07-25] MEDS: Ondansetron 4 MG Tab.DIS PO PRN (08:41)
[2017-07-25] MEDS: Donepezil 5 MG Tab PO SCH (19:39)
[2017-07-25] MEDS: Acetaminophen 500 MG Tab PO PRN (19:39)
[2017-07-26] MEDS: Fish Oil/Omega-3 Fatty Acids 1 Gm Cap PO SCH (08:51)
[2017-07-26] MEDS: amLODIPine 5 MG Tab PO SCH (08:52)
[2017-07-26] MEDS: Folic Acid 1 MG Tab PO SCH ×2 (08:52→19:47)
[2017-07-26] MEDS: Multivitamins with Iron/Calcium/Folic Acid/Minerals Tab PO SCH (08:52)
[2017-07-26] MEDS ORDERED: Magnesium Hydroxide 400 MG/5 ML Susp 30 ML Cup PO PRN (11:30)
[2017-07-26] MEDS: Donepezil 5 MG Tab PO SCH (19:47)
[2017-07-27] MEDS: Folic Acid 1 MG Tab PO SCH ×2 (08:37→19:27)
[2017-07-27] MEDS: Multivitamins with Iron/Calcium/Folic Acid/Minerals Tab PO SCH (08:37)
[2017-07-27] MEDS: Fish Oil/Omega-3 Fatty Acids 1 Gm Cap PO SCH (08:37)
[2017-07-27] MEDS: amLODIPine 5 MG Tab PO SCH (08:43)
--- NOTE | 2017-07-27 15:21 | CT ---
DATE OF SERVICE: 07/27/17 CLINICAL DATA: confusion UNENHANCED BRAIN CT: No priors. Multi slice acquisition through the brain without IV contrast was performed. There is diffuse cerebral atrophy. There are periventricular lucencies bilaterally, consistent with small vessel ischemic change. 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 There are bilateral extraaxial fluid density collections, consistent with bilateral chronic subdural hematomas. Their maximum depth is 10 mm. No masses or mass effect. No intracranial hemorrhage. No evidence of acute or subacute infarct. IMPRESSION: Abnormal exam. See above. [id number] [facility]
--- NOTE | 2017-07-27 15:27 | CT ---
DATE OF SERVICE: 07/27/17 CLINICAL DATA: evaluate nodule UNENHANCED CHEST CT: Multi slice acquisition through the chest without IV contrast was performed. Comparison is made to a prior exam dated 04/28/17. There is a cardiac pacer in place overlying the left chest and the distal pacer wires are in the right atrium and right ventricle. The patchy areas of consolidation in both lower lungs on the prior exam have nearly completely resolved. There are persistent sub-nodular ground-glass opacities in both lungs. There are multiple subpleural nodules within both lungs. These do not appear significantly changed from the prior study. No new pulmonary parenchymal abnormalities. No pleural effusions. No pneumothorax. The heart size is normal. No pericardial effusion. No hilar or mediastinal adenopathy. There are multiple low density lesions within the liver that are most likely cysts. They are unchanged from the prior exam. The remainder of the exam is unchanged from the previous. [id number] MTDD
[2017-07-27] MEDS: Donepezil 5 MG Tab PO SCH (19:27)
[2017-07-28] MEDS: Levothyroxine 25 MCG Tab PO SCH (07:11)
[2017-07-28] MEDS: Folic Acid 1 MG Tab PO SCH ×2 (08:47→19:31)
[2017-07-28] MEDS: amLODIPine 5 MG Tab PO SCH (08:47)
[2017-07-28] MEDS: Multivitamins with Iron/Calcium/Folic Acid/Minerals Tab PO SCH (08:47)
[2017-07-28] MEDS: Fish Oil/Omega-3 Fatty Acids 1 Gm Cap PO SCH (08:47)
[2017-07-28] MEDS: Donepezil 5 MG Tab PO SCH (19:31)
[2017-07-28] MEDS: Acetaminophen 500 MG Tab PO PRN (19:31)
[2017-07-29] MEDS: Levothyroxine 25 MCG Tab PO SCH (07:16)
[2017-07-29] MEDS: Folic Acid 1 MG Tab PO SCH ×2 (08:19→19:44)
[2017-07-29] MEDS: amLODIPine 5 MG Tab PO SCH (08:19)
[2017-07-29] MEDS: Fish Oil/Omega-3 Fatty Acids 1 Gm Cap PO SCH (08:19)
[2017-07-29] MEDS: Multivitamins with Iron/Calcium/Folic Acid/Minerals Tab PO SCH (08:19)
--- NOTE | 2017-07-29 11:33 | PCM.PN ---
- General Info Date of Service: 07/28/17 Subjective Update: Patient states he is doing well and denies any concerns at this time. Functional Status: Reports: Pain Controlled, Tolerating Diet, Ambulating, Urinating - Review of Systems General: Reports: Weakness HEENT: Reports: No Symptoms Pulmonary: Reports: No Symptoms Cardiovascular: Reports: No Symptoms Gastrointestinal: Reports: No Symptoms Genitourinary: Reports: No Symptoms Musculoskeletal: Reports: No Symptoms Skin: Reports: No Symptoms Neurological: Reports: Weakness Psychiatric: Reports: No Symptoms - Patient Data Vitals - Most Recent: Last Vital Signs Temp 36.6 C 07/28/17 07:44 Pulse 59 L 07/28/17 07:44 Resp 18 07/28/17 07:44 BP 123/76 07/28/17 08:47 Pulse Ox 95 07/28/17 07:44 Weight - Most Recent: 62.686 kg Lab Results Last 24 Hours: Laboratory Results - last 24 hr 07/27/17 Range/Units 09:22 Vitamin B12 502 (232-1245) pg/mL Med Orders - Current: Current Medications Acetaminophen (Tylenol Extra Strength) 500 mg PO Q6H PRN PRN Reason: Pain Last Admin: 07/28/17 19:31 Dose: 500 mg Amlodipine Besylate (Norvasc) 5 mg PO DAILY [facility] Last Admin: 07/29/17 08:19 Dose: 5 mg Donepezil HCl (Aricept) 5 mg PO BEDTIME [facility] Last Admin: 07/28/17 19:31 Dose: 5 mg Fish Oil (Fish Oil) 1 gm PO DAILY [facility] Last Admin: 07/29/17 08:19 Dose: 1 gm Folic Acid (Folic Acid) 1 mg PO BID [facility] Last Admin: 07/29/17 08:19 Dose: 1 mg Levothyroxine Sodium (Levothyroxine) 25 mcg PO ACBREAKFAST [facility] Last Admin: 07/29/17 07:16 Dose: 25 mcg Magnesium Hydroxide (Milk Of Magnesia) 30 ml PO DAILY PRN PRN Reason: Constipation Last Admin: 07/26/17 12:23 Dose: 30 ml Multivitamins/Minerals (Thera M Plus) 1 tab PO DAILY [facility] Last Admin: 07/29/17 08:19 Dose: 1 tab Non-Formulary Medication (Methotrexate [Methotrexate]) 1 injection IM We [facility] Last Admin: 07/22/17 18:00 Dose: 1 injection Ondansetron HCl (Zofran Odt) 4 mg PO Q8H PRN PRN Reason: Nausea Last Admin: 07/25/17 08:41 Dose: 4 mg Senna/Docusate Sodium (Senna Plus) 1 tab PO BID [facility] Last Admin: 07/29/17 08:19 Dose: 1 tab Discontinued Medications Bisacodyl (Dulcolax) Confirm Administered Dose 10 mg .ROUTE .STK-MED ONE Stop: 07/20/17 17:54 Last Admin: 07/20/17 18:05 Dose: 10 mg Multivitamins/Minerals (Thera M Plus) 1 tab PO DAILY [facility] Last Admin: 07/15/17 09:20 Dose: 1 tab Non-Formulary Medication (Methotrexate [Methotrexate]) 1 injection IM WEEKLY [facility] Non-Formulary Medication (Methotrexate [Methotrexate]) 1 injection IM .WEEKLY [facility] Ondansetron HCl (Zofran Odt) Confirm Administered Dose 4 mg .ROUTE .STK-MED ONE Stop: 07/14/17 21:38 Last Admin: 07/14/17 21:50 Dose: 4 mg Ondansetron HCl (Zofran Odt) Confirm Administered Dose 4 mg .ROUTE .STK-MED ONE Stop: 07/16/17 08:49 Last Admin: 07/16/17 08:54 Dose: Not Given Senna/Docusate Sodium (Senna Plus) 1 tab PO DAILY [facility] Last Admin: 07/18/17 07:58 Dose: 1 tab Tuberculin PPD (Aplisol) 5 unit IDERM ONETIME ONE Stop: 07/14/17 18:42 Last Admin: 07/15/17 17:05 Dose: 5 unit - Exam General: Alert, Oriented, Cooperative HEENT: Pupils Equal, Pupils Reactive, EOMI Neck: Supple Lungs: Clear to Auscultation, Normal Respiratory Effort Cardiovascular: Regular Rate, Regular Rhythm GI/Abdominal Exam: Normal Bowel Sounds Back Exam: Normal Inspection, Full Range of Motion Extremities: Normal Inspection, Normal Range of Motion Peripheral Pulses: 2+: Dorsalis Pedis (L), Dorsalis Pedis (R) Skin: Warm, Dry, Intact Neurological: No New Focal Deficit Psy/Mental Status: Alert, Normal Affect, Normal Mood - Problem List & Annotations (1) Status post cardiac pacemaker procedure SNOMED Code(s): 223626475, 147267001, 419075430 Code(s): Z95.0 - PRESENCE OF CARDIAC PACEMAKER Status: Acute Priority: High Current Visit: Yes (2) Weakness SNOMED Code(s): 41157879 Code(s): R53.1 - WEAKNESS Status: Chronic Priority: High Current Visit : Yes (3) Weakness generalized SNOMED Code(s): 90498907 Code(s): R53.1 - WEAKNESS Status: Chronic Priority: High Current Visit : Yes - Problem List Review Problem List Initiated/Reviewed/Updated: Yes - Plan Plan:: weakness: PT and OT consult and stregthening. Pt to use call light for assist with ambulation r/t weakness. S/P pacemaker insertion: Wound assessment. Tylenol as needed for relief of pain. 07/16/17 Patient labs reviewed - will check T3/T4 and reassess. Increased diet to include boost or ensure chocolate shake BID. Counseled on continued exercise PT/OT and ambulation. 07/22/2017 Pt is continuing with PT/OT for strengthening. Please refer to PT/ OT notes for this. Waiting for T3, T4 results. TSH result was elevated slightly. Dr Cool is out of the office this week and this SMT TECHNICIAN is following pt at this time. OT did review results of assessment with me. Pt has had changes with mini mental assessment from one month ago. Referral to neuropsych will be initiated. Pt and would prefer [place] for this. Pt is scheduled for CT of chest next week for follow-up of nodules to lung and Dr Cool is following this for pt. Continue with ensure bid and diet as tolerated to assist with improving strength. Weight has been 136 and states his weight was down to 133. BP has been reviewed and pt continues with Amlodipine. He has had a few elevations of his BP. He has had a few readings of lower BP too. Tiesha RN states she did notice BP elevation, but states pt had been having a BM before this and was bearing down with having this BM. Will continue to monitor BP for now. 07-28-17 Discussed with patient and regarding results of CT chest and head. 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 Patient and agree to closely monitor and follow up CT at this time with no further intervention. We will continue PT/OT and supportive care with a walker. MMSE exam done and scoring at 29/30. B12 level ordered. Subclinical hypothyroidism treated.
[2017-07-29] MEDS: METHOTREXATE IM SCH (18:34)
[2017-07-29] MEDS: Donepezil 5 MG Tab PO SCH (19:44)
[2017-07-30] MEDS: Levothyroxine 25 MCG Tab PO SCH (06:23)
[2017-07-30] MEDS: amLODIPine 5 MG Tab PO SCH (08:01)
[2017-07-30] MEDS: Fish Oil/Omega-3 Fatty Acids 1 Gm Cap PO SCH (08:01)
[2017-07-30] MEDS: Multivitamins with Iron/Calcium/Folic Acid/Minerals Tab PO SCH (08:01)
[2017-07-30] MEDS: Folic Acid 1 MG Tab PO SCH ×2 (08:01→20:02)
[2017-07-30] MEDS: Donepezil 5 MG Tab PO SCH (20:02)
[2017-07-31] MEDS: Levothyroxine 25 MCG Tab PO SCH (08:09)
[2017-07-31] MEDS: Multivitamins with Iron/Calcium/Folic Acid/Minerals Tab PO SCH (08:22)
[2017-07-31] MEDS: Fish Oil/Omega-3 Fatty Acids 1 Gm Cap PO SCH (08:22)
[2017-07-31] MEDS: Folic Acid 1 MG Tab PO SCH ×2 (08:23→19:16)
[2017-07-31] MEDS: amLODIPine 5 MG Tab PO SCH (08:23)
[2017-07-31] MEDS: Donepezil 5 MG Tab PO SCH (19:16)
[2017-08-01] MEDS: Levothyroxine 25 MCG Tab PO SCH (07:28)
[2017-08-01] MEDS: Folic Acid 1 MG Tab PO SCH ×2 (08:26→19:34)
[2017-08-01] MEDS: Fish Oil/Omega-3 Fatty Acids 1 Gm Cap PO SCH (08:26)
[2017-08-01] MEDS: amLODIPine 5 MG Tab PO SCH (08:26)
[2017-08-01] MEDS: Multivitamins with Iron/Calcium/Folic Acid/Minerals Tab PO SCH (08:27)
[2017-08-01] MEDS: Donepezil 5 MG Tab PO SCH (19:34)
[2017-08-02] MEDS: Levothyroxine 25 MCG Tab PO SCH (07:46)
[2017-08-02] MEDS: Multivitamins with Iron/Calcium/Folic Acid/Minerals Tab PO SCH (07:48)
[2017-08-02] MEDS: Fish Oil/Omega-3 Fatty Acids 1 Gm Cap PO SCH (07:48)
[2017-08-02] MEDS: Folic Acid 1 MG Tab PO SCH ×2 (07:49→19:27)
[2017-08-02] MEDS: amLODIPine 5 MG Tab PO SCH (07:49)
[2017-08-02] MEDS: Donepezil 5 MG Tab PO SCH (19:27)
[2017-08-03] MEDS: Levothyroxine 25 MCG Tab PO SCH (06:28)
[2017-08-03] MEDS: Fish Oil/Omega-3 Fatty Acids 1 Gm Cap PO SCH (07:48)
[2017-08-03] MEDS: Multivitamins with Iron/Calcium/Folic Acid/Minerals Tab PO SCH (07:49)
[2017-08-03] MEDS: amLODIPine 5 MG Tab PO SCH (07:49)
[2017-08-03] MEDS: Folic Acid 1 MG Tab PO SCH (07:49)
[2017-08-03 10:25] VITALS: BP 131/70
--- NOTE | 2017-08-03 16:34 | PCM.DCSUM1 ---
Discharge Summary - Discharge Data Discharge Date: 08/03/17 Discharge Disposition: Home, Self-Care 01 Condition: Good - Discharge Diagnosis/Problem(s) (1) Status post cardiac pacemaker procedure SNOMED Code(s): 723433099, 966322107, 404169992 ICD Code: Z95.0 - PRESENCE OF CARDIAC PACEMAKER Status: Acute Priority: High (2) Weakness SNOMED Code(s): 12467168 ICD Code: R53.1 - WEAKNESS Status: Chronic Priority: High (3) Weakness generalized SNOMED Code(s): 42540230 ICD Code: R53.1 - WEAKNESS Status: Chronic Priority: High - Patient Summary/Data Consults: Consultations 07/14/17 17:59 OT Evaluation and Treatment [CONS] Routine Please Evaluate and Treat. OT Reason for Consult: Strengthening This query below is only for informational purposes and is not editable. Admission Diagnosis/Problem: Weakness PT Evaluation and Treatment [CONS] Routine Please Evaluate and Treat. PT Reason for Consult: Strengthening This query below is only for informational purposes and is not editable. Admission Diagnosis/Problem: Weakness - Patient Instructions Diet: Heart Healthy Diet Activity: As Tolerated, Rest and Relax Today Driving: Do Not Drive - Discharge Plan Home Medications: Home Meds Methotrexate 1 injection IM WEEKLY 11/10/16 [History] Folic Acid 1 mg PO BID 07/07/17 [History] Multivitamin [Multi-Vitamin Daily] 1 each PO DAILY 07/07/17 [History] Ferney-3/DHA/Epa/Fish Oil [Fish Oil 1,000 mg Softgel] 1 each PO DAILY 07/07/17 [ History] Donepezil [Aricept] 5 mg PO BEDTIME 07/14/17 [History] amLODIPine Besylate [Norvasc] 5 mg PO DAILY 07/14/17 [History] Patient Handouts: Levothyroxine tablets, Intramuscular Injection Instructions Using a Prefilled Syringe - Discharge Summary/Plan Comment DC Time >30 min.: Yes Discharge Summary/Plan Comment: Counseled on follow up in clinic for repeat CT head for chronic subdural hematomas. Discussed plan of care and to return to ER or clinic immediately for further neurological symptoms including weakness, confusion, or any concerns. - Patient Data Vitals - Most Recent: Last Vital Signs Temp 37.0 C 08/03/17 10:00 Pulse 63 08/03/17 10:00 Resp 16 08/03/17 10:00 BP 131/70 08/03/17 10:00 Pulse Ox 96 08/03/17 10:00 Weight - Most Recent: 63.219 kg Med Orders - Current: Current Medications Discontinued Medications Acetaminophen (Tylenol Extra Strength) 500 mg PO Q6H PRN PRN Reason: Pain Last Admin: 07/28/17 19:31 Dose: 500 mg Amlodipine Besylate (Norvasc) 5 mg PO DAILY [facility] Last Admin: 08/03/17 07:49 Dose: 5 mg Bisacodyl (Dulcolax) Confirm Administered Dose 10 mg .ROUTE .STK-MED ONE Stop: 07/20/17 17:54 Last Admin: 07/20/17 18:05 Dose: 10 mg Donepezil HCl (Aricept) 5 mg PO BEDTIME [facility] Last Admin: 08/02/17 19:27 Dose: 5 mg Fish Oil (Fish Oil) 1 gm PO DAILY [facility] Last Admin: 08/03/17 07:48 Dose: 1 gm Folic Acid (Folic Acid) 1 mg PO BID [facility] Last Admin: 08/03/17 07:49 Dose: 1 mg Levothyroxine Sodium (Levothyroxine) 25 mcg PO ACBREAKFAST [facility] Last Admin: 08/03/17 06:28 Dose: 25 mcg Magnesium Hydroxide (Milk Of Magnesia) 30 ml PO DAILY PRN PRN Reason: Constipation Last Admin: 07/26/17 12:23 Dose: 30 ml Multivitamins/Minerals (Thera M Plus) 1 tab PO DAILY [facility] Last Admin: 07/15/17 09:20 Dose: 1 tab Multivitamins/Minerals (Thera M Plus) 1 tab PO DAILY [facility] Last Admin: 08/03/17 07:49 Dose: 1 tab Non-Formulary Medication (Methotrexate [Methotrexate]) 1 injection IM WEEKLY [facility] Non-Formulary Medication (Methotrexate [Methotrexate]) 1 injection IM .WEEKLY [facility] Non-Formulary Medication (Methotrexate [Methotrexate]) 1 injection IM We [facility] Last Admin: 07/29/17 18:34 Dose: 1 injection Ondansetron HCl (Zofran Odt) Confirm Administered Dose 4 mg .ROUTE .STK-MED ONE Stop: 07/14/17 21:38 Last Admin: 07/14/17 21:50 Dose: 4 mg Ondansetron HCl (Zofran Odt) 4 mg PO Q8H PRN PRN Reason: Nausea Last Admin: 07/25/17 08:41 Dose: 4 mg Ondansetron HCl (Zofran Odt) Confirm Administered Dose 4 mg .ROUTE .STK-MED ONE Stop: 07/16/17 08:49 Last Admin: 07/16/17 08:54 Dose: Not Given Senna/Docusate Sodium (Senna Plus) 1 tab PO DAILY [facility] Last Admin: 07/18/17 07:58 Dose: 1 tab Senna/Docusate Sodium (Senna Plus) 1 tab PO BID [facility] Last Admin: 08/03/17 07:48 Dose: 1 tab Tuberculin PPD (Aplisol) 5 unit IDERM ONETIME ONE Stop: 07/14/17 18:42 Last Admin: 07/15/17 17:05 Dose: 5 unit
== END 2017-08-03 13:09 | disposition home or self-care (01) | DRG 947 ==
LOC: UNDOADMIN 13:40 → LB.MS 13:40
PROVIDERS: ADMIT Nurse Practitioner Family; ATTEND Family Medicine
DX: R53.1 Weakness (principal); I62.03 Nontraumatic chronic subdural hemorrhage; Z98.890 Other specified postprocedural states; Z95.0 Presence of cardiac pacemaker; Z66 Do not resuscitate; G30.9 Alzheimer's disease, unspecified; F02.80 Dementia in other diseases classified elsewhere, unspecified severity, without behavioral disturbance, psychotic disturbance, mood disturbance, and anxiety; M06.9 Rheumatoid arthritis, unspecified; Z87.01 Personal history of pneumonia (recurrent); H54.7 Unspecified visual loss; Z11.1 Encounter for screening for respiratory tuberculosis; Z91.81 History of falling
CPT/HCPCS: 36415; 70450; 71250; 80053; 81001; 82607; 84439; 84443; 84481; 84484; 85025; 86580; 97110-GP; 97116-GP; 97161-GP; 97165-GO; 97530-GO; 97530-GP; 97535-GO; A9270-GY

== ENCOUNTER 2018-05-05 08:08 | Emergency (ER) | payer MEDICARE, BC ==
[2018-05-05] MEDS ORDERED: Sodium Chloride 0.9% 1,000 ML IV SCH (08:30)
[2018-05-05 08:33] VITALS: BP 122/68
[2018-05-05] MEDS: Sodium Chloride 0.9% 10 ML Syringe FLUSH PRN (08:50)
[2018-05-05] MEDS: Sodium Chloride 0.45% 1,000 ML IV SCH (09:04)
--- NOTE | 2018-05-05 09:07 | EDM.PDOC ---
ED HPI GENERAL MEDICAL PROBLEM - General Chief Complaint: General Stated Complaint: Difficulty walking Time Seen by Provider: 05/05/18 08:25 Source of Information: Reports: Patient, Family History Limitations: Reports: No Limitations - History of Present Illness INITIAL COMMENTS - FREE TEXT/NARRATIVE: This is a 82yo M here for weakness of the legs. He denies any other issues, no chest pain, no shortness of breath, no fever or chills, no other weakness except weakness of the legs and more of the right leg where he appears to drag it a little per his . Onset: Sudden Duration: Hour(s): Location: Reports: Lower Extremity, Right Improves with: Reports: None Worsens with: Reports: None Associated Symptoms: Reports: No Other Symptoms - Related Data Allergies Allergy/AdvReac Type Severity Reaction Status Date / Time Penicillins Allergy Hives Verified 05/05/18 08:24 Home Meds: Home Meds Methotrexate 1 injection IM WEEKLY 11/10/16 [History] Folic Acid 1 mg PO BID 07/07/17 [History] Multivitamin [Multi-Vitamin Daily] 1 each PO DAILY 07/07/17 [History] Crystal-3/DHA/Epa/Fish Oil [Fish Oil 1,000 mg Softgel] 1 each PO DAILY 07/07/17 [ History] Donepezil [Aricept] 5 mg PO BEDTIME 07/14/17 [History] amLODIPine Besylate [Norvasc] 5 mg PO DAILY 07/14/17 [History] Past Medical History HEENT History: Reports: Impaired Vision, Other (See Below) Other HEENT History: wears glasses Cardiovascular History: Reports: Pacemaker Other Cardiovascular History: Symptomatic Bradycardia. Pacemaker placed 07/08/17 Respiratory History: Reports: Pneumonia, Recurrent Gastrointestinal History: Reports: None Other Gastrointestinal History: Having constipation for a couple of months now Genitourinary History: Reports: Urinary Incontinence Other Genitourinary History: Occasional incontinence and frequency Musculoskeletal History: Reports: Osteoporosis, RA Neurological History: Reports: Alzheimers Disease, Other (See Below) Other Neuro History: dementia Psychiatric History: Reports: Dementia Endocrine/Metabolic History: Reports: None Hematologic History: Reports: None - Infectious Disease History Infectious Disease History: Reports: Chicken Pox, Measles - Past Surgical History HEENT Surgical History: Reports: None Cardiovascular Surgical History: Reports: Pacer Respiratory Surgical History: Reports: None GI Surgical History: Reports: Colonoscopy, Hernia Repair/Other, Polypectomy Neurological Surgical History: Reports: None Musculoskeletal Surgical History: Reports: None Social & Family History - Family History Family Medical History: Noncontributory - Caffeine Use Caffeine Use: Reports: Soda, Tea ED ROS GENERAL - Review of Systems Review Of Systems: ROS reveals no pertinent complaints other than HPI. ED EXAM, GENERAL - Physical Exam Exam: See Below Exam Limited By: No Limitations General Appearance: Alert, WD/WN, No Apparent Distress Eye Exam: Bilateral Eye: EOMI, PERRL Ears: Normal External Exam, Normal TMs Nose: Normal Inspection Throat/Mouth: Normal Inspection Head: Atraumatic, Normocephalic Neck: Normal Inspection Respiratory/Chest: No Respiratory Distress, Lungs Clear, Normal Breath Sounds, No Accessory Muscle Use, Chest Non-Tender Cardiovascular: Normal Peripheral Pulses, Regular Rate, Rhythm GI/Abdominal: Normal Bowel Sounds, Soft, Non-Tender Back Exam: Normal Inspection Extremities: Normal Inspection, Normal Range of Motion Neurological: Alert, Oriented, CN II-XII Intact, Sensory/Motor Deficit (weaker right leg 4/5 vs left 5/5) Skin Exam: Warm, Dry, Intact Course - Vital Signs Last Recorded V/S: Last Vital Signs Temp 36.8 C 05/05/18 08:13 Pulse 65 05/05/18 08:13 Resp 17 05/05/18 08:13 BP 122/68 05/05/18 08:13 Pulse Ox 97 05/05/18 08:13 - Orders/Labs/Meds Orders: Active Orders 24 hr Category Date Time Status EKG Documentation Completion [RC] ASDIRECTED Care 05/05/18 08:24 Active Peripheral IV Insertion Adult [OM.PC] Routine Oth 05/05/18 08:26 Ordered Labs: Laboratory Tests 05/05/18 05/05/18 05/05/18 Range/Units 08:30 08:30 08:30 WBC 6.0 D (4.0-11.0) K/uL RBC 4.30 L (4.50-6.50) M/uL Hgb 13.8 (13.0-18.0) g/dL Hct 40.8 (40.0-54.0) % MCV 95 (76-96) fL MCH 32.1 H (27.0-32.0) pg MCHC 33.8 (31.0-35.0) g/dL RDW 13.9 (11.0-16.0) % Plt Count 165 (150-400) K/uL MPV 8.7 (6.0-10.0) fL Neut % (Auto) 56.5 (45.0-70.0) % Lymph % (Auto) 27.9 (20.0-40.0) % Ogle % (Auto) 7.9 (3.0-10.0) % Eos % (Auto) 7.4 H (1.0-5.0) % Baso % (Auto) 0.3 (0.0-0.5) % Neut # (Auto) 3.36 (2.00-7.50) K/uL Lymph # (Auto) 1.66 (1.50-4.00) K/uL Ogle # (Auto) 0.47 (0.20-0.80) K/uL Eos # (Auto) 0.44 H (0.04-0.40) K/uL Baso # (Auto) 0.02 (0.02-0.10) K/uL PT 9.9 (9.0-11.5) sec INR 1.0 (1.0-3.5) Sodium 144 (136-145) mmol/L Potassium 4.1 (3.5-5.1) mmol/L Chloride 107 (98-107) mmol/L Carbon Dioxide 26.3 (21.0-32.0) mmol/L Anion Gap 14.8 (5.0-15.0) mmol/L BUN 17 (8-26) mg/dL Creatinine 1.20 (0.70-1.30) mg/dL Est Cr Clr Drug Dosing 47.09 mL/min Estimated GFR (MDRD) 58 L (>60) MLS/MIN BUN/Creatinine Ratio 14.2 (6-25) Glucose 122 H D (74-100) mg/dL Calcium 8.6 (8.5-10.1) mg/dL Total Bilirubin 0.7 D (0.0-1.0) mg/dL AST 14 L (15-37) U/L ALT 19 (12-78) U/L Alkaline Phosphatase 52 (46-116) U/L Troponin I < 0.017 (0.000-0.060) ng/mL B-Natriuretic Peptide 89 D (0-450) pg/mL Total Protein 6.8 (6.4-8.2) g/dL Albumin 3.5 (3.4-5.0) g/dL Globulin 3.3 (2.2-4.2) g/dL Albumin/Globulin Ratio 1.1 (0.8-2.0) TSH, Ultra Sensitive 3.218 (0.358-3.740) uIU/mL Urine Color Urine Appearance (CLEAR) Urine pH (5.0-8.0) Ur Specific [place] (1.003-1.030) Urine Protein (NEGATIVE) mg/dL Urine Glucose (UA) (NEGATIVE) mg/dL Urine Ketones (NEGATIVE) mg/dL Urine Occult Blood (NEGATIVE) Urine Nitrite (NEGATIVE) Urine Bilirubin (NEGATIVE) Urine Urobilinogen (0.2-1.0) E.U./dL Ur Leukocyte Esterase (NEGATIVE) Urine RBC /HPF Urine WBC /HPF 05/05/18 Range/Units 09:50 WBC (4.0-11.0) K/uL RBC (4.50-6.50) M/uL Hgb (13.0-18.0) g/dL Hct (40.0-54.0) % MCV (76-96) fL MCH (27.0-32.0) pg MCHC (31.0-35.0) g/dL RDW (11.0-16.0) % Plt Count (150-400) K/uL MPV (6.0-10.0) fL Neut % (Auto) (45.0-70.0) % Lymph % (Auto) (20.0-40.0) % Ogle % (Auto) (3.0-10.0) % Eos % (Auto) (1.0-5.0) % Baso % (Auto) (0.0-0.5) % Neut # (Auto) (2.00-7.50) K/uL Lymph # (Auto) (1.50-4.00) K/uL Ogle # (Auto) (0.20-0.80) K/uL Eos # (Auto) (0.04-0.40) K/uL Baso # (Auto) (0.02-0.10) K/uL PT (9.0-11.5) sec INR (1.0-3.5) Sodium (136-145) mmol/L Potassium (3.5-5.1) mmol/L Chloride (98-107) mmol/L Carbon Dioxide (21.0-32.0) mmol/L Anion Gap (5.0-15.0) mmol/L BUN (8-26) mg/dL Creatinine (0.70-1.30) mg/dL Est Cr Clr Drug Dosing mL/min Estimated GFR (MDRD) (>60) MLS/MIN BUN/Creatinine Ratio (6-25) Glucose (74-100) mg/dL Calcium (8.5-10.1) mg/dL Total Bilirubin (0.0-1.0) mg/dL AST (15-37) U/L ALT (12-78) U/L Alkaline Phosphatase (46-116) U/L Troponin I (0.000-0.060) ng/mL B-Natriuretic Peptide (0-450) pg/mL Total Protein (6.4-8.2) g/dL Albumin (3.4-5.0) g/dL Globulin (2.2-4.2) g/dL Albumin/Globulin Ratio (0.8-2.0) TSH, Ultra Sensitive (0.358-3.740) uIU/mL Urine Color Yellow Urine Appearance Clear (CLEAR) Urine pH 7.0 (5.0-8.0) Ur Specific [place] 1.015 (1.003-1.030) Urine Protein Negative (NEGATIVE) mg/dL Urine Glucose (UA) Negative (NEGATIVE) mg/dL Urine Ketones Negative (NEGATIVE) mg/dL Urine Occult Blood Negative (NEGATIVE) Urine Nitrite Negative (NEGATIVE) Urine Bilirubin Negative (NEGATIVE) Urine Urobilinogen 0.2 (0.2-1.0) E.U./dL Ur Leukocyte Esterase Negative (NEGATIVE) Urine RBC Not seen /HPF Urine WBC Not seen /HPF Meds: Medications Discontinued Medications Generic Name Dose Route Start Last Admin Trade Name Freq PRN Reason Stop Dose Admin Sodium Chloride 1,000 mls @ 200 mls/hr 05/05/18 08:30 Normal Saline IV ASDIRECTED FEI Sodium Chloride 1,000 mls @ 200 mls/hr 05/05/18 08:45 05/05/18 09:04 Sodium Chloride 0.45% IV 200 mls/hr ASDIRECTED FEI Administration Sodium Chloride 10 ml 05/05/18 08:26 05/05/18 08:50 Saline Flush FLUSH 10 ml ASDIRECTED PRN Administration Keep Vein Open Departure - Departure Time of Disposition: 11:00 Disposition: Home, Self-Care 01 Condition: Good Clinical Impression: Weakness of right lower extremity, Dizziness - Discharge Information Instructions: Dizziness, [id number] Referrals: PCP,None [Primary Care Provider] - Forms: ED Department Discharge Additional Instructions: - Will have an ultrasound of the carotid tomorrow at 1030. Proceed to the registration office by [phone] [phone]. - Follow-up in the clinic with Dr Cool anytime next week. Please call the clinic to set up an appointment. - Take some time, at least a minute to sit on bed before standing up and wait for at least 30 seconds before starting to walk to avoid falling when feeling dizzy. - Problem List & Annotations (1) Dizziness SNOMED Code(s): 683828973, 255707311 Code(s): R42 - DIZZINESS AND GIDDINESS Status: Chronic Priority: High (2) Weakness of right lower extremity SNOMED Code(s): 751441812 Code(s): R29.898 - OTH SYMPTOMS AND SIGNS INVOLVING THE MUSCULOSKELETAL SYSTEM Status: Acute Priority: High - Problem List Review Problem List Initiated/Reviewed/Updated: Yes - My Orders Last 24 Hours: My Active Orders 05/05/18 08:24 EKG Documentation Completion [RC] ASDIRECTED 05/05/18 08:26 Peripheral IV Insertion Adult [OM.PC] Routine - Assessment/Plan Last 24 Hours: My Active Orders 05/05/18 08:24 EKG Documentation Completion [RC] ASDIRECTED 05/05/18 08:26 Peripheral IV Insertion Adult [OM.PC] Routine Plan: Discussed close monitoring of symptoms and f/u in clinic for recheck of weakness and dizziness. Carotid U/S to be done tomorrow. Discussed weakness and leg length discrepancy and further management. Discussed close f/u and rtc as scheduled.
--- NOTE | 2018-05-05 10:56 | CT ---
DATE OF SERVICE: 05/05/2018 CLINICAL DATA: Right lower extremity weakness Unenhanced brain CT: Multislice acquisition through the brain without IV contrast was performed. Comparison is made to a prior exam dated 09/10/2017. There is diffuse cerebral atrophy. There are periventricular lucencies bilaterally consistent with small vessel ischemic change. No masses or mass effect. No intracranial hemorrhage. No evidence of acute or subacute infarct. There is minimal mucosal thickening in the ethmoid sinuses persistent chronic sinusitis. Impression: No acute intracranial abnormalities. MTDD
== END 2018-05-05 14:36 | disposition home or self-care (01) ==
LOC: LB.ED 08:08
DX: M62.81 Muscle weakness (generalized) (principal); R42 Dizziness and giddiness; G30.9 Alzheimer's disease, unspecified; F02.80 Dementia in other diseases classified elsewhere, unspecified severity, without behavioral disturbance, psychotic disturbance, mood disturbance, and anxiety; Z79.899 Other long term (current) drug therapy; Z88.0 Allergy status to penicillin
CPT/HCPCS: 36415; 70450; 80053; 81001; 83880; 84443; 84484; 85025; 85610; 93005; 96360; 96361; 99285-25; J3490

== ENCOUNTER 2021-03-11 06:08 | Inpatient (IN) | payer MEDICARE, BC ==
[2021-03-11] MEDS ORDERED: cefTRIAXone 2 GM Vial IVPUSH ONE (07:30)
[2021-03-11] MEDS ORDERED: Azithromycin 500 MG Vial ONE (07:31)
[2021-03-11] MEDS ORDERED: cefTRIAXone 2 GM Vial ONE (07:40)
[2021-03-11] MEDS ORDERED: Azithromycin 500 MG in Sodium Chloride 0.9% 250 ML IV ONE (07:54)
[2021-03-11] MEDS ORDERED: REMDESIVIR 200 MG in Sodium Chloride 0.9% 250 ML IV ONE (08:34)
[2021-03-11] MEDS: Dexamethasone 4 MG/ML 5 ML MDV IVPUSH SCH (09:26)
[2021-03-11] MEDS: REMDESIVIR 100 MG in Sodium Chloride 0.9% 250 ML IV SCH (09:29)
[2021-03-11] MEDS ORDERED: Docusate Sodium 100 MG Cap PO PRN (09:34)
[2021-03-11] MEDS ORDERED: REMDESIVIR 200 MG in Sodium Chloride 0.9% 250 ML IV SCH (10:00)
[2021-03-11] MEDS ORDERED: Non-Formulary Medication 1 Each (Fluoxetine [Prozac] 10 MG Tablet) PO SCH (10:45)
[2021-03-11] MEDS ORDERED: cefTRIAXone 1 GM in Sodium Chloride 0.9% 50 ML IV SCH (11:00)
[2021-03-11] MEDS: Oxybutynin 5 MG Tab.ER PO SCH (11:39)
[2021-03-11] MEDS: busPIRone 10 MG Tab PO SCH ×2 (11:39→20:35)
[2021-03-11] MEDS: Folic Acid 0.4 MG Tab PO SCH (11:40)
[2021-03-11] MEDS: Cyanocobalamin (Vitamin B12) 1,000 MCG Tab PO SCH (11:40)
[2021-03-11] MEDS: Enoxaparin 40 MG/0.4 ML Syringe SUBCUT SCH (11:40)
[2021-03-11] MEDS: Non-Formulary Medication 1 Each (Carbidopa/Levodopa [Carbidopa-Levodopa 25-250] 1 EACH Tab PO SCH ×2 (13:47→20:35)
[2021-03-11] MEDS ORDERED: Latanoprost 0.005% Ophth Soln 2.5 ML Bottle EYEBOTH SCH (20:00)
[2021-03-11] MEDS: Non-Formulary Medication 1 Each (Methotrexate [Methotrexate] 2.5 MG Tablet) PO SCH (20:35)
[2021-03-11] MEDS: Donepezil 5 MG Tab PO SCH (20:35)
[2021-03-11] MEDS: Latanoprost 0.005% Ophth Soln 2.5 ML Bottle EYEBOTH SCH (20:35)
[2021-03-11] MEDS: Calcium Carbonate/Vitamin D3 1500 MG-400 Units Tab PO SCH (20:35)
[2021-03-11] MEDS: Acetaminophen 325 MG Tab PO PRN (20:55)
[2021-03-12] MEDS: busPIRone 10 MG Tab PO SCH ×2 (07:28→19:55)
[2021-03-12] MEDS: Cyanocobalamin (Vitamin B12) 1,000 MCG Tab PO SCH (07:28)
[2021-03-12] MEDS: Folic Acid 0.4 MG Tab PO SCH (07:28)
[2021-03-12] MEDS: Levothyroxine 25 MCG Tab PO SCH (07:28)
[2021-03-12] MEDS: Oxybutynin 5 MG Tab.ER PO SCH (07:28)
[2021-03-12] MEDS: Calcium Carbonate/Vitamin D3 1500 MG-400 Units Tab PO SCH ×2 (07:28→20:01)
[2021-03-12] MEDS: Enoxaparin 40 MG/0.4 ML Syringe SUBCUT SCH (07:28)
[2021-03-12] MEDS: FLUoxetine 10 MG Cap PO SCH (07:29)
[2021-03-12] MEDS ORDERED: Docusate Sodium 100 MG Cap PO SCH (08:00)
[2021-03-12] MEDS ORDERED: Non-Formulary Medication 1 Each (Docusate Sodium [Stool Softener] 100 MG Tablet) PO SCH (08:00)
[2021-03-12] MEDS: Non-Formulary Medication 1 Each (Carbidopa/Levodopa [Carbidopa-Levodopa 25-250] 1 EACH Tab PO SCH ×3 (09:00→19:56)
[2021-03-12] MEDS: Dexamethasone 4 MG/ML 5 ML MDV IVPUSH SCH (09:01)
[2021-03-12] MEDS ORDERED: REMDESIVIR 100 MG in Sodium Chloride 0.9% 250 ML IV SCH (09:06)
[2021-03-12] MEDS: Azithromycin 500 MG in Sodium Chloride 0.9% 250 ML IV SCH (10:29)
[2021-03-12] MEDS ORDERED: cefTRIAXone 1 GM in Sodium Chloride 0.9% 50 ML IV SCH (11:00)
[2021-03-12] MEDS: Cefepime 2 GM in Sodium Chloride 0.9% 50 ML IV SCH ×2 (14:00→21:57)
[2021-03-12] MEDS: Donepezil 5 MG Tab PO SCH (19:55)
[2021-03-12] MEDS: Docusate Sodium 100 MG Cap PO SCH (19:55)
[2021-03-12] MEDS: Latanoprost 0.005% Ophth Soln 2.5 ML Bottle EYEBOTH SCH (19:56)
[2021-03-12] MEDS: Non-Formulary Medication 1 Each (Methotrexate [Methotrexate] 2.5 MG Tablet) PO SCH (19:58)
[2021-03-12] MEDS ORDERED: Cefepime 1 GM Vial ONE (21:15)
[2021-03-12] MEDS: Sodium Chloride 0.9% 10 ML Syringe FLUSH PRN (23:03)
[2021-03-13] MEDS: REMDESIVIR 100 MG in Sodium Chloride 0.9% 250 ML IV SCH (00:06)
[2021-03-13] MEDS: Cefepime 2 GM in Sodium Chloride 0.9% 50 ML IV SCH ×3 (05:27→22:11)
[2021-03-13] MEDS: Folic Acid 0.4 MG Tab PO SCH (07:41)
[2021-03-13] MEDS: Enoxaparin 40 MG/0.4 ML Syringe SUBCUT SCH (07:41)
[2021-03-13] MEDS: Cyanocobalamin (Vitamin B12) 1,000 MCG Tab PO SCH (07:42)
[2021-03-13] MEDS: Levothyroxine 25 MCG Tab PO SCH (07:42)
[2021-03-13] MEDS: Oxybutynin 5 MG Tab.ER PO SCH (07:42)
[2021-03-13] MEDS: FLUoxetine 10 MG Cap PO SCH (07:42)
[2021-03-13] MEDS: busPIRone 10 MG Tab PO SCH ×2 (07:42→19:34)
[2021-03-13] MEDS: Docusate Sodium 100 MG Cap PO SCH ×2 (07:43→19:33)
[2021-03-13] MEDS: Calcium Carbonate/Vitamin D3 1500 MG-400 Units Tab PO SCH ×2 (07:43→19:34)
[2021-03-13] MEDS: Non-Formulary Medication 1 Each (Carbidopa/Levodopa [Carbidopa-Levodopa 25-250] 1 EACH Tab PO SCH ×3 (07:44→19:34)
[2021-03-13] MEDS: Dexamethasone 4 MG/ML 5 ML MDV IVPUSH SCH (09:15)
[2021-03-13] MEDS: REMDESIVIR 100 MG in Sodium Chloride 0.9% 100 ML IV SCH (10:42)
[2021-03-13] MEDS: Azithromycin 500 MG in Sodium Chloride 0.9% 250 ML IV SCH (11:10)
[2021-03-13] MEDS: Polyethylene Glycol 3350 Powder 17 GM Packet PO SCH (18:21)
[2021-03-13] MEDS: Donepezil 5 MG Tab PO SCH (19:33)
[2021-03-13] MEDS: Latanoprost 0.005% Ophth Soln 2.5 ML Bottle EYEBOTH SCH (19:34)
[2021-03-14] MEDS: Cefepime 2 GM in Sodium Chloride 0.9% 50 ML IV SCH ×2 (06:26→18:28)
[2021-03-14] MEDS: Folic Acid 0.4 MG Tab PO SCH (08:01)
[2021-03-14] MEDS: busPIRone 10 MG Tab PO SCH ×2 (08:01→20:07)
[2021-03-14] MEDS: Oxybutynin 5 MG Tab.ER PO SCH (08:01)
[2021-03-14] MEDS: Docusate Sodium 100 MG Cap PO SCH ×2 (08:02→20:06)
[2021-03-14] MEDS: FLUoxetine 10 MG Cap PO SCH (08:02)
[2021-03-14] MEDS: Levothyroxine 25 MCG Tab PO SCH (08:02)
[2021-03-14] MEDS: Calcium Carbonate/Vitamin D3 1500 MG-400 Units Tab PO SCH ×2 (08:02→20:06)
[2021-03-14] MEDS: Cyanocobalamin (Vitamin B12) 1,000 MCG Tab PO SCH (08:03)
[2021-03-14] MEDS: Polyethylene Glycol 3350 Powder 17 GM Packet PO SCH (08:03)
[2021-03-14] MEDS: Enoxaparin 40 MG/0.4 ML Syringe SUBCUT SCH (08:03)
[2021-03-14] MEDS: Non-Formulary Medication 1 Each (Carbidopa/Levodopa [Carbidopa-Levodopa 25-250] 1 EACH Tab PO SCH ×3 (08:17→20:07)
[2021-03-14] MEDS: Dexamethasone 4 MG/ML 5 ML MDV IVPUSH SCH (10:26)
[2021-03-14] MEDS: REMDESIVIR 100 MG in Sodium Chloride 0.9% 100 ML IV SCH (10:27)
[2021-03-14] MEDS: Azithromycin 500 MG in Sodium Chloride 0.9% 250 ML IV SCH (11:34)
[2021-03-14] MEDS ORDERED: Cefepime 1 GM Vial ONE (18:28)
[2021-03-14] MEDS: Latanoprost 0.005% Ophth Soln 2.5 ML Bottle EYEBOTH SCH (20:07)
[2021-03-14] MEDS: Donepezil 5 MG Tab PO SCH (20:07)
[2021-03-15] MEDS: Cefepime 2 GM in Sodium Chloride 0.9% 50 ML IV SCH ×3 (00:15→19:38)
[2021-03-15] MEDS: Levothyroxine 25 MCG Tab PO SCH (08:42)
[2021-03-15] MEDS: busPIRone 10 MG Tab PO SCH ×2 (08:42→19:36)
[2021-03-15] MEDS: Enoxaparin 40 MG/0.4 ML Syringe SUBCUT SCH (08:42)
[2021-03-15] MEDS: Folic Acid 0.4 MG Tab PO SCH (08:43)
[2021-03-15] MEDS: FLUoxetine 10 MG Cap PO SCH (08:43)
[2021-03-15] MEDS: Cyanocobalamin (Vitamin B12) 1,000 MCG Tab PO SCH (08:43)
[2021-03-15] MEDS: Calcium Carbonate/Vitamin D3 1500 MG-400 Units Tab PO SCH ×2 (08:43→19:37)
[2021-03-15] MEDS: Docusate Sodium 100 MG Cap PO SCH ×2 (08:43→19:36)
[2021-03-15] MEDS: Oxybutynin 5 MG Tab.ER PO SCH (08:44)
[2021-03-15] MEDS: Non-Formulary Medication 1 Each (Carbidopa/Levodopa [Carbidopa-Levodopa 25-250] 1 EACH Tab PO SCH ×3 (08:48→20:00)
[2021-03-15] MEDS ORDERED: Folic Acid 0.4 MG Tab ONE (08:49)
[2021-03-15] MEDS: REMDESIVIR 100 MG in Sodium Chloride 0.9% 100 ML IV SCH ×2 (14:15→16:15)
[2021-03-15] MEDS: Dexamethasone 4 MG/ML 5 ML MDV IVPUSH SCH (14:16)
[2021-03-15] MEDS: Azithromycin 500 MG in Sodium Chloride 0.9% 250 ML IV SCH (14:56)
[2021-03-15] MEDS: Donepezil 5 MG Tab PO SCH (19:36)
[2021-03-15] MEDS: Latanoprost 0.005% Ophth Soln 2.5 ML Bottle EYEBOTH SCH (19:37)
[2021-03-15] MEDS ORDERED: Carbidopa/Levodopa 25-100 MG Tab ONE (19:41)
[2021-03-15] MEDS: Cefepime 2 GM in Sodium Chloride 0.9% 100 ML IV SCH (21:30)
[2021-03-16] MEDS ORDERED: Cefepime 1 GM Vial ONE (06:06)
[2021-03-16] MEDS: Cefepime 2 GM in Sodium Chloride 0.9% 100 ML IV SCH (06:15)
[2021-03-16] MEDS: Folic Acid 0.4 MG Tab PO SCH (07:49)
[2021-03-16] MEDS: Docusate Sodium 100 MG Cap PO SCH ×2 (07:50→20:15)
[2021-03-16] MEDS: busPIRone 10 MG Tab PO SCH ×2 (07:50→20:14)
[2021-03-16] MEDS: Oxybutynin 5 MG Tab.ER PO SCH (07:50)
[2021-03-16] MEDS: Calcium Carbonate/Vitamin D3 1500 MG-400 Units Tab PO SCH ×2 (07:50→20:14)
[2021-03-16] MEDS: Levothyroxine 25 MCG Tab PO SCH (07:50)
[2021-03-16] MEDS: Cyanocobalamin (Vitamin B12) 1,000 MCG Tab PO SCH (07:50)
[2021-03-16] MEDS: FLUoxetine 10 MG Cap PO SCH (07:51)
[2021-03-16] MEDS: Dexamethasone 4 MG/ML 5 ML MDV IVPUSH SCH (07:51)
[2021-03-16] MEDS: Non-Formulary Medication 1 Each (Carbidopa/Levodopa [Carbidopa-Levodopa 25-250] 1 EACH Tab PO SCH ×3 (07:52→20:15)
[2021-03-16] MEDS: Enoxaparin 40 MG/0.4 ML Syringe SUBCUT SCH (07:53)
[2021-03-16] MEDS: Azithromycin 500 MG in Sodium Chloride 0.9% 250 ML IV SCH (11:11)
[2021-03-16] MEDS: REMDESIVIR 100 MG in Sodium Chloride 0.9% 100 ML IV SCH (14:02)
[2021-03-16] MEDS: Donepezil 5 MG Tab PO SCH (20:14)
[2021-03-16] MEDS: Latanoprost 0.005% Ophth Soln 2.5 ML Bottle EYEBOTH SCH (20:15)
[2021-03-17] MEDS: Calcium Carbonate/Vitamin D3 1500 MG-400 Units Tab PO SCH ×2 (08:17→20:40)
[2021-03-17] MEDS: Levothyroxine 25 MCG Tab PO SCH (08:18)
[2021-03-17] MEDS: Folic Acid 0.4 MG Tab PO SCH (08:18)
[2021-03-17] MEDS: busPIRone 10 MG Tab PO SCH ×2 (08:18→20:39)
[2021-03-17] MEDS: Azithromycin 250 MG Tab PO SCH (08:19)
[2021-03-17] MEDS: Oxybutynin 5 MG Tab.ER PO SCH (08:19)
[2021-03-17] MEDS: Docusate Sodium 100 MG Cap PO SCH ×2 (08:19→20:41)
[2021-03-17] MEDS: Cyanocobalamin (Vitamin B12) 1,000 MCG Tab PO SCH (08:20)
[2021-03-17] MEDS: FLUoxetine 10 MG Cap PO SCH (08:20)
[2021-03-17] MEDS: Dexamethasone 4 MG/ML 5 ML MDV IVPUSH SCH (08:25)
[2021-03-17] MEDS: Enoxaparin 40 MG/0.4 ML Syringe SUBCUT SCH (08:26)
[2021-03-17] MEDS: Non-Formulary Medication 1 Each (Carbidopa/Levodopa [Carbidopa-Levodopa 25-250] 1 EACH Tab PO SCH ×3 (08:27→20:41)
[2021-03-17] MEDS: Donepezil 5 MG Tab PO SCH (20:40)
[2021-03-17] MEDS: Latanoprost 0.005% Ophth Soln 2.5 ML Bottle EYEBOTH SCH (20:42)
[2021-03-18] MEDS: busPIRone 10 MG Tab PO SCH ×2 (07:22→19:27)
[2021-03-18] MEDS: FLUoxetine 10 MG Cap PO SCH (07:22)
[2021-03-18] MEDS: Azithromycin 250 MG Tab PO SCH (07:22)
[2021-03-18] MEDS: Cyanocobalamin (Vitamin B12) 1,000 MCG Tab PO SCH (07:22)
[2021-03-18] MEDS: Oxybutynin 5 MG Tab.ER PO SCH (07:22)
[2021-03-18] MEDS: Folic Acid 0.4 MG Tab PO SCH (07:22)
[2021-03-18] MEDS: Levothyroxine 25 MCG Tab PO SCH (07:23)
[2021-03-18] MEDS: Enoxaparin 40 MG/0.4 ML Syringe SUBCUT SCH (07:23)
[2021-03-18] MEDS: Calcium Carbonate/Vitamin D3 1500 MG-400 Units Tab PO SCH ×2 (07:23→19:27)
[2021-03-18] MEDS: Dexamethasone 4 MG Tab PO SCH (07:23)
[2021-03-18] MEDS: Docusate Sodium 100 MG Cap PO SCH ×2 (07:23→19:28)
[2021-03-18] MEDS: Non-Formulary Medication 1 Each (Carbidopa/Levodopa [Carbidopa-Levodopa 25-250] 1 EACH Tab PO SCH ×3 (07:26→19:28)
[2021-03-18] MEDS: Donepezil 5 MG Tab PO SCH (19:27)
[2021-03-18] MEDS: Latanoprost 0.005% Ophth Soln 2.5 ML Bottle EYEBOTH SCH (19:29)
[2021-03-18] MEDS ORDERED: METHOTREXATE PO SCH (20:00)
[2021-03-19] MEDS ORDERED: Cefepime 1 GM in Sodium Chloride 0.9% 50 ML IV SCH (06:00)
[2021-03-19] MEDS: Levothyroxine 25 MCG Tab PO SCH (06:19)
[2021-03-19] MEDS: Enoxaparin 40 MG/0.4 ML Syringe SUBCUT SCH (08:46)
[2021-03-19] MEDS: Sodium Chloride 0.9% 10 ML Syringe FLUSH PRN (08:46)
[2021-03-19] MEDS: Non-Formulary Medication 1 Each (Carbidopa/Levodopa [Carbidopa-Levodopa 25-250] 1 EACH Tab PO SCH ×3 (08:46→21:20)
[2021-03-19] MEDS: Docusate Sodium 100 MG Cap PO SCH ×2 (08:47→21:19)
[2021-03-19] MEDS: FLUoxetine 10 MG Cap PO SCH (08:47)
[2021-03-19] MEDS: busPIRone 10 MG Tab PO SCH ×2 (08:47→21:19)
[2021-03-19] MEDS: Folic Acid 0.4 MG Tab PO SCH (08:47)
[2021-03-19] MEDS: Oxybutynin 5 MG Tab.ER PO SCH (08:47)
[2021-03-19] MEDS: Dexamethasone 4 MG Tab PO SCH (08:47)
[2021-03-19] MEDS: Calcium Carbonate/Vitamin D3 1500 MG-400 Units Tab PO SCH ×2 (08:48→21:19)
[2021-03-19] MEDS: Azithromycin 250 MG Tab PO SCH (08:48)
[2021-03-19] MEDS: Cyanocobalamin (Vitamin B12) 1,000 MCG Tab PO SCH (08:48)
[2021-03-19] MEDS: Cefepime 1 GM in Sodium Chloride 0.9% 50 ML IV SCH ×2 (14:36→22:47)
[2021-03-19] MEDS: Donepezil 5 MG Tab PO SCH (21:19)
[2021-03-19] MEDS: Latanoprost 0.005% Ophth Soln 2.5 ML Bottle EYEBOTH SCH (21:21)
[2021-03-20] MEDS: Cefepime 1 GM in Sodium Chloride 0.9% 50 ML IV SCH ×3 (06:15→22:55)
[2021-03-20] MEDS: Levothyroxine 25 MCG Tab PO SCH (06:19)
[2021-03-20] MEDS: Oxybutynin 5 MG Tab.ER PO SCH (08:39)
[2021-03-20] MEDS: Azithromycin 250 MG Tab PO SCH (08:39)
[2021-03-20] MEDS: Cyanocobalamin (Vitamin B12) 1,000 MCG Tab PO SCH (08:39)
[2021-03-20] MEDS: Docusate Sodium 100 MG Cap PO SCH ×2 (08:39→20:34)
[2021-03-20] MEDS: busPIRone 10 MG Tab PO SCH ×2 (08:39→20:34)
[2021-03-20] MEDS: Dexamethasone 4 MG Tab PO SCH (08:40)
[2021-03-20] MEDS: Calcium Carbonate/Vitamin D3 1500 MG-400 Units Tab PO SCH ×2 (08:40→20:34)
[2021-03-20] MEDS: Folic Acid 0.4 MG Tab PO SCH (08:40)
[2021-03-20] MEDS: Non-Formulary Medication 1 Each (Carbidopa/Levodopa [Carbidopa-Levodopa 25-250] 1 EACH Tab PO SCH ×3 (08:42→20:55)
[2021-03-20] MEDS: Enoxaparin 40 MG/0.4 ML Syringe SUBCUT SCH (08:42)
[2021-03-20] MEDS: Sodium Chloride 0.9% 10 ML Syringe FLUSH PRN (08:44)
[2021-03-20] MEDS: FLUoxetine 10 MG Cap PO SCH (08:44)
[2021-03-20] MEDS ORDERED: Menthol/Zinc Oxide Ointment 113 GM Tube TOP ONE (14:16)
[2021-03-20] MEDS: Donepezil 5 MG Tab PO SCH (20:34)
[2021-03-20] MEDS: Nystatin Topical Powder 15 GM Bottle TOP SCH (20:35)
[2021-03-20] MEDS: Latanoprost 0.005% Ophth Soln 2.5 ML Bottle EYEBOTH SCH (20:35)
[2021-03-21] MEDS: Cefepime 1 GM in Sodium Chloride 0.9% 50 ML IV SCH (06:28)
[2021-03-21] MEDS: Levothyroxine 25 MCG Tab PO SCH (06:32)
[2021-03-21] MEDS: Folic Acid 0.4 MG Tab PO SCH (07:49)
[2021-03-21] MEDS: busPIRone 10 MG Tab PO SCH ×2 (07:49→19:33)
[2021-03-21] MEDS: Oxybutynin 5 MG Tab.ER PO SCH (07:50)
[2021-03-21] MEDS: Cyanocobalamin (Vitamin B12) 1,000 MCG Tab PO SCH (07:50)
[2021-03-21] MEDS: Azithromycin 250 MG Tab PO SCH (07:50)
[2021-03-21] MEDS: Docusate Sodium 100 MG Cap PO SCH ×2 (07:50→19:33)
[2021-03-21] MEDS: Calcium Carbonate/Vitamin D3 1500 MG-400 Units Tab PO SCH ×2 (07:50→19:33)
[2021-03-21] MEDS: Dexamethasone 4 MG Tab PO SCH (07:50)
[2021-03-21] MEDS: FLUoxetine 10 MG Cap PO SCH (07:50)
[2021-03-21] MEDS: Enoxaparin 40 MG/0.4 ML Syringe SUBCUT SCH (07:51)
[2021-03-21] MEDS: Nystatin Topical Powder 15 GM Bottle TOP SCH ×2 (07:53→20:00)
[2021-03-21] MEDS: Non-Formulary Medication 1 Each (Carbidopa/Levodopa [Carbidopa-Levodopa 25-250] 1 EACH Tab PO SCH ×3 (07:53→19:34)
[2021-03-21] MEDS: Donepezil 5 MG Tab PO SCH (19:33)
[2021-03-21] MEDS: Acetaminophen 325 MG Tab PO PRN (19:34)
[2021-03-21] MEDS: Latanoprost 0.005% Ophth Soln 2.5 ML Bottle EYEBOTH SCH (19:34)
[2021-03-21] MEDS ORDERED: VANCOmycin 1.5 GM/300 ML 1.5 GM in Premix Bag 1 BAG IV ONE (21:18)
[2021-03-21] MEDS: Cefepime 2 GM in Sodium Chloride 0.9% 50 ML IV SCH (22:00)
[2021-03-21] MEDS ORDERED: VANCOmycin 1.5 GM/300 ML 300 ML ONE (22:35)
[2021-03-22] MEDS: Azithromycin 500 MG in Sodium Chloride 0.9% 250 ML IV SCH ×2 (01:35→20:57)
[2021-03-22] MEDS: Cefepime 2 GM in Sodium Chloride 0.9% 50 ML IV SCH ×2 (05:53→20:50)
[2021-03-22] MEDS: Levothyroxine 25 MCG Tab PO SCH (06:02)
[2021-03-22] MEDS: Non-Formulary Medication 1 Each (Carbidopa/Levodopa [Carbidopa-Levodopa 25-250] 1 EACH Tab PO SCH ×3 (07:43→20:58)
[2021-03-22] MEDS: Folic Acid 0.4 MG Tab PO SCH (08:26)
[2021-03-22] MEDS: Oxybutynin 5 MG Tab.ER PO SCH (08:27)
[2021-03-22] MEDS: Nystatin Topical Powder 15 GM Bottle TOP SCH ×2 (08:27→20:57)
[2021-03-22] MEDS: busPIRone 10 MG Tab PO SCH ×2 (08:27→20:55)
[2021-03-22] MEDS: FLUoxetine 10 MG Cap PO SCH (08:27)
[2021-03-22] MEDS: Calcium Carbonate/Vitamin D3 1500 MG-400 Units Tab PO SCH ×2 (08:27→20:55)
[2021-03-22] MEDS: Enoxaparin 40 MG/0.4 ML Syringe SUBCUT SCH (08:27)
[2021-03-22] MEDS: Cyanocobalamin (Vitamin B12) 1,000 MCG Tab PO SCH (08:27)
[2021-03-22] MEDS: Docusate Sodium 100 MG Cap PO SCH ×2 (08:27→20:56)
[2021-03-22] MEDS: Donepezil 5 MG Tab PO SCH (20:55)
[2021-03-22] MEDS: Latanoprost 0.005% Ophth Soln 2.5 ML Bottle EYEBOTH SCH (20:57)
[2021-03-23] MEDS: Levothyroxine 25 MCG Tab PO SCH (06:02)
[2021-03-23] MEDS: Docusate Sodium 100 MG Cap PO SCH ×2 (07:33→19:58)
[2021-03-23] MEDS: busPIRone 10 MG Tab PO SCH ×2 (07:33→19:58)
[2021-03-23] MEDS: Cyanocobalamin (Vitamin B12) 1,000 MCG Tab PO SCH (07:34)
[2021-03-23] MEDS: Enoxaparin 40 MG/0.4 ML Syringe SUBCUT SCH (07:34)
[2021-03-23] MEDS: Oxybutynin 5 MG Tab.ER PO SCH (07:34)
[2021-03-23] MEDS: Folic Acid 0.4 MG Tab PO SCH (07:34)
[2021-03-23] MEDS: FLUoxetine 10 MG Cap PO SCH (07:34)
[2021-03-23] MEDS: Calcium Carbonate/Vitamin D3 1500 MG-400 Units Tab PO SCH ×2 (07:34→19:58)
[2021-03-23] MEDS: Non-Formulary Medication 1 Each (Carbidopa/Levodopa [Carbidopa-Levodopa 25-250] 1 EACH Tab PO SCH ×3 (07:39→20:00)
[2021-03-23] MEDS: Nystatin Topical Powder 15 GM Bottle TOP SCH ×2 (08:35→19:58)
[2021-03-23] MEDS: Cefepime 2 GM in Sodium Chloride 0.9% 50 ML IV SCH ×2 (08:35→20:06)
[2021-03-23] MEDS: Donepezil 5 MG Tab PO SCH (19:58)
[2021-03-23] MEDS: Azithromycin 500 MG in Sodium Chloride 0.9% 250 ML IV SCH (20:43)
[2021-03-23] MEDS: Latanoprost 0.005% Ophth Soln 2.5 ML Bottle EYEBOTH SCH (22:26)
[2021-03-24] MEDS: Enoxaparin 40 MG/0.4 ML Syringe SUBCUT SCH (07:50)
[2021-03-24] MEDS: Cefepime 2 GM in Sodium Chloride 0.9% 50 ML IV SCH ×2 (07:50→20:06)
[2021-03-24] MEDS: Non-Formulary Medication 1 Each (Carbidopa/Levodopa [Carbidopa-Levodopa 25-250] 1 EACH Tab PO SCH ×3 (07:50→20:04)
[2021-03-24] MEDS: Cyanocobalamin (Vitamin B12) 1,000 MCG Tab PO SCH (07:51)
[2021-03-24] MEDS: Calcium Carbonate/Vitamin D3 1500 MG-400 Units Tab PO SCH ×2 (07:51→20:04)
[2021-03-24] MEDS: Levothyroxine 25 MCG Tab PO SCH (07:51)
[2021-03-24] MEDS: Docusate Sodium 100 MG Cap PO SCH ×2 (07:51→20:04)
[2021-03-24] MEDS: busPIRone 10 MG Tab PO SCH ×2 (07:51→20:04)
[2021-03-24] MEDS: FLUoxetine 10 MG Cap PO SCH (07:51)
[2021-03-24] MEDS: Folic Acid 0.4 MG Tab PO SCH (07:51)
[2021-03-24] MEDS: Oxybutynin 5 MG Tab.ER PO SCH (07:51)
[2021-03-24] MEDS: Nystatin Topical Powder 15 GM Bottle TOP SCH ×2 (08:08→20:05)
[2021-03-24] MEDS ORDERED: VANCOmycin 1.5 GM/300 ML 300 ML ONE (12:51)
[2021-03-24] MEDS ORDERED: Vancomycin 1.5 GM in Sodium Chloride 0.9% 500 ML IV SCH (13:00)
[2021-03-24] MEDS ORDERED: VANCOmycin 1.5 GM/300 ML 1.5 GM in Premix Bag 1 BAG IV SCH (13:00)
[2021-03-24] MEDS ORDERED: Cefepime 1 GM Vial ONE ×2 (19:37→19:39)
[2021-03-24] MEDS: Donepezil 5 MG Tab PO SCH (20:03)
[2021-03-24] MEDS: Latanoprost 0.005% Ophth Soln 2.5 ML Bottle EYEBOTH SCH (20:08)
[2021-03-24] MEDS: Azithromycin 500 MG in Sodium Chloride 0.9% 250 ML IV SCH (20:45)
[2021-03-25] MEDS: Oxybutynin 5 MG Tab.ER PO SCH (07:49)
[2021-03-25] MEDS: Levothyroxine 25 MCG Tab PO SCH (07:49)
[2021-03-25] MEDS: FLUoxetine 10 MG Cap PO SCH (07:49)
[2021-03-25] MEDS: Calcium Carbonate/Vitamin D3 1500 MG-400 Units Tab PO SCH ×2 (07:49→19:46)
[2021-03-25] MEDS: Docusate Sodium 100 MG Cap PO SCH ×2 (07:50→19:46)
[2021-03-25] MEDS: Cyanocobalamin (Vitamin B12) 1,000 MCG Tab PO SCH (07:50)
[2021-03-25] MEDS: busPIRone 10 MG Tab PO SCH ×2 (07:50→19:46)
[2021-03-25] MEDS: Cefepime 2 GM in Sodium Chloride 0.9% 50 ML IV SCH (07:50)
[2021-03-25] MEDS: Enoxaparin 40 MG/0.4 ML Syringe SUBCUT SCH (07:50)
[2021-03-25] MEDS: Folic Acid 0.4 MG Tab PO SCH (07:50)
[2021-03-25] MEDS: Non-Formulary Medication 1 Each (Carbidopa/Levodopa [Carbidopa-Levodopa 25-250] 1 EACH Tab PO SCH ×3 (07:51→19:46)
[2021-03-25] MEDS: Nystatin Topical Powder 15 GM Bottle TOP SCH ×2 (07:52→19:48)
[2021-03-25] MEDS ORDERED: Ondansetron 4 MG/2 ML SDV IVPUSH PRN (10:10)
[2021-03-25] MEDS ORDERED: VANCOmycin 1.5 GM/300 ML 300 ML IV SCH (13:00)
[2021-03-25] MEDS: Levofloxacin 500 MG Tab PO SCH (13:40)
[2021-03-25] MEDS: Donepezil 5 MG Tab PO SCH (19:46)
[2021-03-25] MEDS: Latanoprost 0.005% Ophth Soln 2.5 ML Bottle EYEBOTH SCH (19:46)
[2021-03-26] MEDS: Levothyroxine 25 MCG Tab PO SCH (06:00)
[2021-03-26] MEDS: Folic Acid 0.4 MG Tab PO SCH (08:28)
[2021-03-26] MEDS: Oxybutynin 5 MG Tab.ER PO SCH (08:28)
[2021-03-26] MEDS: Calcium Carbonate/Vitamin D3 1500 MG-400 Units Tab PO SCH ×2 (08:28→19:35)
[2021-03-26] MEDS: Enoxaparin 40 MG/0.4 ML Syringe SUBCUT SCH (08:29)
[2021-03-26] MEDS: FLUoxetine 10 MG Cap PO SCH (08:29)
[2021-03-26] MEDS: busPIRone 10 MG Tab PO SCH ×2 (08:29→19:35)
[2021-03-26] MEDS: Docusate Sodium 100 MG Cap PO SCH ×2 (08:29→19:35)
[2021-03-26] MEDS: Cyanocobalamin (Vitamin B12) 1,000 MCG Tab PO SCH (08:29)
[2021-03-26] MEDS: Non-Formulary Medication 1 Each (Carbidopa/Levodopa [Carbidopa-Levodopa 25-250] 1 EACH Tab PO SCH ×3 (08:30→19:34)
[2021-03-26] MEDS: Nystatin Topical Powder 15 GM Bottle TOP SCH ×2 (08:30→20:06)
[2021-03-26] MEDS: Levofloxacin 500 MG Tab PO SCH (12:46)
[2021-03-26] MEDS: Latanoprost 0.005% Ophth Soln 2.5 ML Bottle EYEBOTH SCH (19:35)
[2021-03-26] MEDS: Donepezil 5 MG Tab PO SCH (19:35)
[2021-03-27] MEDS: Levothyroxine 25 MCG Tab PO SCH (06:03)
[2021-03-27] MEDS: Non-Formulary Medication 1 Each (Carbidopa/Levodopa [Carbidopa-Levodopa 25-250] 1 EACH Tab PO SCH (07:57)
[2021-03-27] MEDS: Enoxaparin 40 MG/0.4 ML Syringe SUBCUT SCH (07:57)
[2021-03-27] MEDS: Cyanocobalamin (Vitamin B12) 1,000 MCG Tab PO SCH (07:58)
[2021-03-27] MEDS: Docusate Sodium 100 MG Cap PO SCH (07:58)
[2021-03-27] MEDS: Oxybutynin 5 MG Tab.ER PO SCH (07:58)
[2021-03-27] MEDS: Folic Acid 0.4 MG Tab PO SCH (07:58)
[2021-03-27] MEDS: FLUoxetine 10 MG Cap PO SCH (07:58)
[2021-03-27] MEDS: Calcium Carbonate/Vitamin D3 1500 MG-400 Units Tab PO SCH (07:58)
[2021-03-27] MEDS: Nystatin Topical Powder 15 GM Bottle TOP SCH (07:58)
[2021-03-27] MEDS: busPIRone 10 MG Tab PO SCH (07:58)
[2021-03-27 09:42] VITALS: BP 160/99; PULSE 59
== END 2021-03-27 11:30 | disposition home or self-care (01) | DRG 177 ==
LOC: LB.ED 06:08 → LB.MS 09:29
PROVIDERS: ADMIT Physician Assistant; ATTEND Physician Assistant
PROC: 8E0ZXY6 Isolation (ICD-10-PCS; principal; 2021-03-11)
PROC: XW033E5 Introduction of Remdesivir Anti-infective into Peripheral Vein, Percutaneous Approach, New Technology Group 5 (ICD-10-PCS; 2021-03-11)
PROC: 3E0333Z Introduction of Anti-inflammatory into Peripheral Vein, Percutaneous Approach (ICD-10-PCS; 2021-03-11)
PROC: 3E0333Z Introduction of Anti-inflammatory into Peripheral Vein, Percutaneous Approach (ICD-10-PCS; 2021-03-18)
DX: U07.1 COVID-19 (principal); J12.82 Pneumonia due to coronavirus disease 2019; J15.9 Unspecified bacterial pneumonia; R00.1 Bradycardia, unspecified; H54.7 Unspecified visual loss; M81.0 Age-related osteoporosis without current pathological fracture; M06.9 Rheumatoid arthritis, unspecified; G30.9 Alzheimer's disease, unspecified; F02.80 Dementia in other diseases classified elsewhere, unspecified severity, without behavioral disturbance, psychotic disturbance, mood disturbance, and anxiety; G20 Parkinson's disease; R32 Unspecified urinary incontinence; W19.XXXA Unspecified fall, initial encounter; K59.00 Constipation, unspecified; Z88.0 Allergy status to penicillin; Z79.899 Other long term (current) drug therapy; Z95.0 Presence of cardiac pacemaker
CPT/HCPCS: 36415; 70450; 71045; 71250; 80048; 80053; 80076; 80202; 81003; 83605; 84100; 85025; 85610; 85730; 87040; 87804; 87804-59; 93005; 96365; 96375; 97110-GP; 97116-GP; 97161-GP; 97166-GO; 97530-GO; 97530-GP; 97535-GO; 99222; 99232; 99285; 99285-25; A0425; A0429; A9270-GY; J0248; J0456; J0692; J0696; J1100; J1650; J2405; J3370; J7050; J8540; U0002

== ENCOUNTER 2021-09-23 17:32 | Observation (INO) | payer MEDICARE, BC ==
[2021-09-23 18:27] LABS: ESTIMATED GFR 66 mL/min (>60)
[2021-09-23] MEDS ORDERED: Non-Formulary Medication 1 Each (Methotrexate [Methotrexate] 2.5 MG Tablet) PO SCH (19:30)
[2021-09-23] MEDS ORDERED: Acetaminophen 325 MG Tab PO PRN (19:32)
[2021-09-23] MEDS ORDERED: Non-Formulary Medication 1 Each (Carbidopa/Levodopa [Carbidopa-Levodopa 25-250] 1 EACH Tab PO SCH (20:00)
[2021-09-23] MEDS ORDERED: Non-Formulary Medication 1 Each (Buspirone [Buspar] 10 MG Tablet) PO SCH (20:00)
[2021-09-23] MEDS ORDERED: DONEPEZIL 5 MG PO SCH (20:00)
[2021-09-23] MEDS: BUSPIRONE 10 MG PO SCH (22:41)
[2021-09-23] MEDS: SINEMET PO SCH (22:45)
[2021-09-23] MEDS: DONEPEZIL 5 MG PO SCH (22:47)
[2021-09-23] MEDS: Non-Formulary Medication 1 Each (Latanoprost [Xalatan 0.005% Ophth Soln] 2.5 ML Bottle) OP SCH (22:47)
[2021-09-24] MEDS ORDERED: Non-Formulary Medication 1 Each (Levothyroxine [Levothyroxine] 25 MCG Tablet) PO SCH (07:00)
[2021-09-24] MEDS: Levothyroxine 25 MCG Tab**OWN MED PO SCH (07:39)
[2021-09-24] MEDS: BUSPIRONE 10 MG PO SCH ×2 (07:40→20:44)
[2021-09-24] MEDS: Non-Formulary Medication 1 Each (Docusate Sodium [Stool Softener] 100 MG Tablet) PO SCH (07:41)
[2021-09-24] MEDS: FLUOXETINE 10 MG PO SCH (07:43)
[2021-09-24] MEDS: Non-Formulary Medication 1 Each (Oxybutynin [Oxybutynin Er] 5 MG Tab.Er) PO SCH (07:43)
[2021-09-24] MEDS: SINEMET PO SCH ×3 (07:44→20:43)
[2021-09-24] MEDS ORDERED: Non-Formulary Medication 1 Each (Fluoxetine [Prozac] 10 MG Tablet) PO SCH (08:00)
[2021-09-24] MEDS ORDERED: FLUOXETINE 10 MG PO SCH (08:00)
[2021-09-24] MEDS ORDERED: DONEPEZIL 5 MG PO SCH (20:00)
[2021-09-24] MEDS: DONEPEZIL 5 MG PO SCH (20:43)
[2021-09-24] MEDS: Non-Formulary Medication 1 Each (Latanoprost [Xalatan 0.005% Ophth Soln] 2.5 ML Bottle) OP SCH (20:45)
[2021-09-25] MEDS: FLUOXETINE 10 MG PO SCH (07:57)
[2021-09-25] MEDS: Levothyroxine 25 MCG Tab**OWN MED PO SCH (07:57)
[2021-09-25] MEDS: Non-Formulary Medication 1 Each (Oxybutynin [Oxybutynin Er] 5 MG Tab.Er) PO SCH (07:57)
[2021-09-25] MEDS: BUSPIRONE 10 MG PO SCH ×2 (07:57→19:35)
[2021-09-25] MEDS: Non-Formulary Medication 1 Each (Docusate Sodium [Stool Softener] 100 MG Tablet) PO SCH (07:57)
[2021-09-25] MEDS: SINEMET PO SCH ×4 (07:57→19:35)
[2021-09-25] MEDS: DONEPEZIL 5 MG PO SCH (19:36)
[2021-09-25] MEDS: Non-Formulary Medication 1 Each (Latanoprost [Xalatan 0.005% Ophth Soln] 2.5 ML Bottle) EYEBOTH SCH (19:37)
[2021-09-26] MEDS: OXYBUTYNIN 10 MG PO SCH (08:10)
[2021-09-26] MEDS: Levothyroxine 25 MCG Tab**OWN MED PO SCH (08:10)
[2021-09-26] MEDS: SINEMET PO SCH ×4 (08:11→19:55)
[2021-09-26] MEDS: FLUOXETINE 10 MG PO SCH (08:11)
[2021-09-26] MEDS: BUSPIRONE 10 MG PO SCH ×2 (08:11→19:54)
[2021-09-26] MEDS: Losartan 25 MG Tab PO SCH (13:03)
[2021-09-26] MEDS: DONEPEZIL 5 MG PO SCH (19:53)
[2021-09-26] MEDS: Non-Formulary Medication 1 Each (Latanoprost [Xalatan 0.005% Ophth Soln] 2.5 ML Bottle) EYEBOTH SCH (19:55)
[2021-09-27] MEDS: Levothyroxine 25 MCG Tab**OWN MED PO SCH (07:35)
[2021-09-27] MEDS: BUSPIRONE 10 MG PO SCH ×2 (07:35→19:14)
[2021-09-27] MEDS: SINEMET PO SCH ×4 (07:36→19:14)
[2021-09-27] MEDS: FLUOXETINE 10 MG PO SCH (07:36)
[2021-09-27] MEDS: Losartan 25 MG Tab PO SCH (07:36)
[2021-09-27] MEDS: OXYBUTYNIN 10 MG PO SCH (07:36)
[2021-09-27] MEDS: Docusate Sodium 100 MG Cap PO PRN (09:23)
[2021-09-27] MEDS: Non-Formulary Medication 1 Each (Latanoprost [Xalatan 0.005% Ophth Soln] 2.5 ML Bottle) EYEBOTH SCH (19:14)
[2021-09-27] MEDS: DONEPEZIL 5 MG PO SCH (19:14)
[2021-09-27] MEDS ORDERED: Calcium Carbonate/Vitamin D3 1500 MG-400 Units Tab ONE (19:17)
[2021-09-28] MEDS: Levothyroxine 25 MCG Tab**OWN MED PO SCH (07:18)
[2021-09-28] MEDS: BUSPIRONE 10 MG PO SCH ×2 (08:10→19:24)
[2021-09-28] MEDS: Losartan 25 MG Tab PO SCH (08:11)
[2021-09-28] MEDS: SINEMET PO SCH ×4 (08:12→19:28)
[2021-09-28] MEDS: FLUOXETINE 10 MG PO SCH (08:12)
[2021-09-28] MEDS: OXYBUTYNIN 10 MG PO SCH (08:12)
[2021-09-28] MEDS: Docusate Sodium 100 MG Cap PO PRN (08:17)
[2021-09-28] MEDS: Menthol/Zinc Oxide Ointment 113 GM Tube TOP PRN (15:45)
[2021-09-28] MEDS: Non-Formulary Medication 1 Each (Latanoprost [Xalatan 0.005% Ophth Soln] 2.5 ML Bottle) EYEBOTH SCH (19:24)
[2021-09-28] MEDS: DONEPEZIL 5 MG PO SCH (19:24)
[2021-09-28] MEDS ORDERED: Magnesium Hydroxide 400 MG/5 ML Susp 30 ML Cup PO ONE (20:20)
[2021-09-29] MEDS: Levothyroxine 25 MCG Tab**OWN MED PO SCH (07:24)
[2021-09-29] MEDS: Losartan 25 MG Tab PO SCH (08:18)
[2021-09-29] MEDS: FLUOXETINE 10 MG PO SCH (08:19)
[2021-09-29] MEDS: SINEMET PO SCH ×4 (08:19→19:27)
[2021-09-29] MEDS: OXYBUTYNIN 10 MG PO SCH (08:20)
[2021-09-29] MEDS: BUSPIRONE 10 MG PO SCH ×3 (08:20→19:26)
[2021-09-29] MEDS: Docusate Sodium 100 MG Cap PO PRN (08:21)
[2021-09-29] MEDS ORDERED: busPIRone 10 MG Tab ONE ×2 (08:27→19:24)
[2021-09-29] MEDS ORDERED: Polyethylene Glycol 3350 Powder 17 GM Packet PO ONE (10:18)
[2021-09-29] MEDS: Non-Formulary Medication 1 Each (Latanoprost [Xalatan 0.005% Ophth Soln] 2.5 ML Bottle) EYEBOTH SCH (19:26)
[2021-09-29] MEDS: DONEPEZIL 5 MG PO SCH (19:27)
[2021-09-30] MEDS: Levothyroxine 25 MCG Tab**OWN MED PO SCH (07:32)
[2021-09-30] MEDS ORDERED: busPIRone 10 MG Tab ONE (08:43)
[2021-09-30] MEDS ORDERED: Oxybutynin 5 MG Tab.ER ONE (08:43)
[2021-09-30] MEDS: BUSPIRONE 10 MG PO SCH ×2 (08:47→20:03)
[2021-09-30] MEDS: Losartan 25 MG Tab PO SCH (08:48)
[2021-09-30] MEDS: SINEMET PO SCH ×4 (08:49→20:06)
[2021-09-30] MEDS: FLUOXETINE 10 MG PO SCH (08:49)
[2021-09-30] MEDS: OXYBUTYNIN 10 MG PO SCH (08:51)
[2021-09-30] MEDS: DONEPEZIL 5 MG PO SCH (20:03)
[2021-09-30] MEDS: Non-Formulary Medication 1 Each (Latanoprost [Xalatan 0.005% Ophth Soln] 2.5 ML Bottle) EYEBOTH SCH (20:06)
[2021-10-01] MEDS: Levothyroxine 25 MCG Tab**OWN MED PO SCH (07:30)
[2021-10-01] MEDS: FLUOXETINE 10 MG PO SCH (07:50)
[2021-10-01] MEDS: BUSPIRONE 10 MG PO SCH (07:51)
[2021-10-01] MEDS: SINEMET PO SCH ×2 (07:52→12:22)
[2021-10-01] MEDS: Losartan 25 MG Tab PO SCH (08:00)
[2021-10-01] MEDS ORDERED: OXYBUTYNIN 10 MG PO SCH (08:00)
[2021-10-01] MEDS: Menthol/Zinc Oxide Ointment 113 GM Tube TOP PRN (08:02)
[2021-10-01 12:58] VITALS: BP 133/88; PULSE 79
== END 2021-10-01 13:15 | disposition home or self-care (01) ==
LOC: LB.ED 17:32 → LB.MS 19:32 → UNDOADMOB 19:40
PROVIDERS: ADMIT Physician Assistant; ATTEND Physician Assistant
DX: R53.1 Weakness (principal); Z88.0 Allergy status to penicillin; Z79.899 Other long term (current) drug therapy; Z20.822 Contact with and (suspected) exposure to COVID-19
CPT/HCPCS: 36415; 71045; 72100; 73600-LT; 80053; 81001; 83605; 83735; 83880; 85025; 93005; 93010; 97110-GP; 97116-GP; 97161-GP; 97165-GO; 97530-GO; 97530-GP; 99285; A0425; A0429; A9270-GY; G0378; U0002

== ENCOUNTER 2021-10-01 15:34 | Inpatient (IN) | payer BC, MEDICARE ==
[2021-10-01] MEDS ORDERED: ZINC OXIDE TOP PRN (19:45)
[2021-10-01] MEDS ORDERED: Non-Formulary Medication 1 Each (Docusate Sodium [Colace] 100 MG Cap) PO PRN (19:45)
[2021-10-01] MEDS ORDERED: MENTHOL TOP PRN (19:45)
[2021-10-01] MEDS ORDERED: Non-Formulary Medication 1 Each (Acetaminophen [Tylenol] 325 MG Tablet) PO PRN (19:45)
[2021-10-01] MEDS: DONEPEZIL 5 MG PO SCH (21:46)
[2021-10-01] MEDS: BUSPAR 10 MG PO SCH (21:46)
[2021-10-01] MEDS: CARBIDOPA PO SCH (21:46)
[2021-10-01] MEDS: VITAMIN D3 PO SCH (21:46)
[2021-10-01] MEDS: LEVODOPA PO SCH (21:46)
[2021-10-01] MEDS: CALCIUM CARBONATE PO SCH (21:46)
[2021-10-01] MEDS: OPTHALMIC EYEBOTH SCH (21:47)
[2021-10-01] MEDS: LATANOPROST 0.005% EYEBOTH SCH (21:47)
[2021-10-02] MEDS: LEVOTHYROXINE 25 MCG PO SCH (06:57)
[2021-10-02] MEDS: CARBIDOPA PO SCH ×4 (07:18→19:14)
[2021-10-02] MEDS: CALCIUM CARBONATE PO SCH ×2 (07:18→19:13)
[2021-10-02] MEDS: VITAMIN D3 PO SCH ×2 (07:18→19:13)
[2021-10-02] MEDS: LEVODOPA PO SCH ×4 (07:18→19:14)
[2021-10-02] MEDS: BUSPAR 10 MG PO SCH ×2 (07:19→19:15)
[2021-10-02] MEDS: FLUOXETINE 10 MG PO SCH (07:19)
[2021-10-02] MEDS: [UNRECOGNIZED DRUG - OTHER] PO SCH (07:20)
[2021-10-02] MEDS: OXYBUTYNIN 10 MG PO SCH (07:20)
[2021-10-02] MEDS: FOLIC ACID 0.8 MG PO SCH (07:20)
[2021-10-02] MEDS: Non-Formulary Medication 1 Each (Losartan [Cozaar] 25 MG Tablet) PO SCH (08:29)
[2021-10-02] MEDS: DONEPEZIL 5 MG PO SCH (19:15)
[2021-10-02] MEDS: LATANOPROST 0.005% EYEBOTH SCH (19:18)
[2021-10-02] MEDS: OPTHALMIC EYEBOTH SCH (19:18)
[2021-10-03] MEDS: LEVOTHYROXINE 25 MCG PO SCH (07:24)
[2021-10-03] MEDS: Polyethylene Glycol 3350 Powder 17 GM Packet PO SCH (07:49)
[2021-10-03] MEDS: FOLIC ACID 0.8 MG PO SCH (07:51)
[2021-10-03] MEDS: [UNRECOGNIZED DRUG - OTHER] PO SCH (07:51)
[2021-10-03] MEDS: Non-Formulary Medication 1 Each (Losartan [Cozaar] 25 MG Tablet) PO SCH (07:51)
[2021-10-03] MEDS: BUSPAR 10 MG PO SCH ×2 (07:52→19:21)
[2021-10-03] MEDS: OXYBUTYNIN 10 MG PO SCH (07:52)
[2021-10-03] MEDS: VITAMIN D3 PO SCH ×2 (07:52→19:23)
[2021-10-03] MEDS: CALCIUM CARBONATE PO SCH ×2 (07:52→19:23)
[2021-10-03] MEDS: LEVODOPA PO SCH ×4 (07:53→19:21)
[2021-10-03] MEDS: CARBIDOPA PO SCH ×4 (07:53→19:21)
[2021-10-03] MEDS: FLUOXETINE 10 MG PO SCH (07:53)
[2021-10-03] MEDS: DONEPEZIL 5 MG PO SCH (19:21)
[2021-10-03] MEDS: LATANOPROST 0.005% EYEBOTH SCH (19:22)
[2021-10-03] MEDS: OPTHALMIC EYEBOTH SCH (19:22)
[2021-10-04] MEDS: LEVOTHYROXINE 25 MCG PO SCH (07:05)
[2021-10-04] MEDS: Polyethylene Glycol 3350 Powder 17 GM Packet PO SCH (07:41)
[2021-10-04] MEDS: CALCIUM CARBONATE PO SCH ×2 (07:42→19:46)
[2021-10-04] MEDS: Non-Formulary Medication 1 Each (Losartan [Cozaar] 25 MG Tablet) PO SCH (07:42)
[2021-10-04] MEDS: VITAMIN D3 PO SCH ×2 (07:42→19:46)
[2021-10-04] MEDS: [UNRECOGNIZED DRUG - OTHER] PO SCH (07:43)
[2021-10-04] MEDS: OXYBUTYNIN 10 MG PO SCH (07:43)
[2021-10-04] MEDS: FOLIC ACID 0.8 MG PO SCH (07:43)
[2021-10-04] MEDS: FLUOXETINE 10 MG PO SCH (07:43)
[2021-10-04] MEDS: BUSPAR 10 MG PO SCH ×2 (07:44→19:44)
[2021-10-04] MEDS: CARBIDOPA PO SCH ×4 (07:44→19:46)
[2021-10-04] MEDS: LEVODOPA PO SCH ×4 (07:44→19:46)
[2021-10-04] MEDS: LATANOPROST 0.005% EYEBOTH SCH (19:44)
[2021-10-04] MEDS: OPTHALMIC EYEBOTH SCH (19:44)
[2021-10-04] MEDS: DONEPEZIL 5 MG PO SCH (19:45)
[2021-10-05] MEDS: LEVOTHYROXINE 25 MCG PO SCH (07:08)
[2021-10-05] MEDS: Polyethylene Glycol 3350 Powder 17 GM Packet PO SCH (08:20)
[2021-10-05] MEDS: LEVODOPA PO SCH ×4 (08:21→20:14)
[2021-10-05] MEDS: CARBIDOPA PO SCH ×4 (08:21→20:14)
[2021-10-05] MEDS: BUSPAR 10 MG PO SCH ×2 (08:22→20:15)
[2021-10-05] MEDS: VITAMIN D3 PO SCH ×2 (08:22→20:15)
[2021-10-05] MEDS: FOLIC ACID 0.8 MG PO SCH (08:22)
[2021-10-05] MEDS: Non-Formulary Medication 1 Each (Losartan [Cozaar] 25 MG Tablet) PO SCH (08:22)
[2021-10-05] MEDS: CALCIUM CARBONATE PO SCH ×2 (08:22→20:15)
[2021-10-05] MEDS: FLUOXETINE 10 MG PO SCH (08:22)
[2021-10-05] MEDS: [UNRECOGNIZED DRUG - OTHER] PO SCH (08:22)
[2021-10-05] MEDS: OXYBUTYNIN 10 MG PO SCH (08:23)
[2021-10-05] MEDS: LATANOPROST 0.005% EYEBOTH SCH (20:14)
[2021-10-05] MEDS: OPTHALMIC EYEBOTH SCH (20:14)
[2021-10-05] MEDS: DONEPEZIL 5 MG PO SCH (20:15)
[2021-10-06] MEDS: LEVOTHYROXINE 25 MCG PO SCH (07:23)
[2021-10-06] MEDS: VITAMIN D3 PO SCH ×2 (07:45→07:56)
[2021-10-06] MEDS: CALCIUM CARBONATE PO SCH ×2 (07:45→07:56)
[2021-10-06] MEDS: Polyethylene Glycol 3350 Powder 17 GM Packet PO SCH (07:51)
[2021-10-06] MEDS: LEVODOPA PO SCH ×4 (07:52→19:23)
[2021-10-06] MEDS: CARBIDOPA PO SCH ×4 (07:52→19:23)
[2021-10-06] MEDS: FOLIC ACID 0.8 MG PO SCH (07:53)
[2021-10-06] MEDS: FLUOXETINE 10 MG PO SCH (07:53)
[2021-10-06] MEDS: BUSPAR 10 MG PO SCH ×2 (07:53→19:23)
[2021-10-06] MEDS: OXYBUTYNIN 10 MG PO SCH (07:54)
[2021-10-06] MEDS: Non-Formulary Medication 1 Each (Losartan [Cozaar] 25 MG Tablet) PO SCH (07:54)
[2021-10-06] MEDS: [UNRECOGNIZED DRUG - OTHER] PO SCH (07:55)
[2021-10-06] MEDS: DONEPEZIL 5 MG PO SCH (19:23)
[2021-10-06] MEDS: OPTHALMIC EYEBOTH SCH (19:23)
[2021-10-06] MEDS: LATANOPROST 0.005% EYEBOTH SCH (19:23)
[2021-10-07] MEDS: [UNRECOGNIZED DRUG - OTHER] PO SCH (07:51)
[2021-10-07] MEDS: LEVOTHYROXINE 25 MCG PO SCH (07:52)
[2021-10-07] MEDS: FLUOXETINE 10 MG PO SCH (07:52)
[2021-10-07] MEDS: BUSPAR 10 MG PO SCH (07:52)
[2021-10-07] MEDS: VITAMIN D3 PO SCH (07:53)
[2021-10-07] MEDS: CALCIUM CARBONATE PO SCH (07:53)
[2021-10-07] MEDS: FOLIC ACID 0.8 MG PO SCH (07:53)
[2021-10-07] MEDS: OXYBUTYNIN 10 MG PO SCH (07:53)
[2021-10-07] MEDS: LEVODOPA PO SCH (07:53)
[2021-10-07] MEDS: CARBIDOPA PO SCH (07:53)
[2021-10-07] MEDS: Non-Formulary Medication 1 Each (Losartan [Cozaar] 25 MG Tablet) PO SCH (07:53)
[2021-10-07] MEDS: Polyethylene Glycol 3350 Powder 17 GM Packet PO SCH (07:54)
[2021-10-07 09:39] VITALS: BP 100/62; PULSE 75
== END 2021-10-07 10:00 | DRG 951 ==
LOC: LB.MS 18:50
PROVIDERS: ADMIT Nurse Practitioner Family; ATTEND Nurse Practitioner Family
DX: Z75.5 Holiday relief care (principal); G20 Parkinson's disease; G30.9 Alzheimer's disease, unspecified; F02.80 Dementia in other diseases classified elsewhere, unspecified severity, without behavioral disturbance, psychotic disturbance, mood disturbance, and anxiety; H54.7 Unspecified visual loss; M81.0 Age-related osteoporosis without current pathological fracture; Z88.0 Allergy status to penicillin; Z79.890 Hormone replacement therapy; Z79.899 Other long term (current) drug therapy; Z95.0 Presence of cardiac pacemaker; Z87.01 Personal history of pneumonia (recurrent)
CPT/HCPCS: 99304; 99315; A9270-GY

== ENCOUNTER 2022-06-15 09:55 | Emergency (ER) | payer MEDICARE, BC ==
[2022-06-15 10:50] LABS: ESTIMATED GFR 60 mL/min (>60)
[2022-06-15] MEDS ORDERED: Levofloxacin 500 MG Tab PO ONE (11:01)
[2022-06-15] MEDS ORDERED: Levofloxacin 500 MG Tab ONE (11:05)
[2022-06-15 11:10] VITALS: BP 130/88; PULSE 80
== END 2022-06-15 11:25 | disposition home or self-care (01) ==
LOC: LB.ED 09:55
DX: N39.0 Urinary tract infection, site not specified (principal); Z88.0 Allergy status to penicillin; Z95.0 Presence of cardiac pacemaker; Z79.899 Other long term (current) drug therapy
CPT/HCPCS: 36415; 51702; 80048; 81001; 85027; 87086; 99283; A9270-GY

== ENCOUNTER 2022-07-22 03:45 | Emergency (ER) | payer MEDICARE, BC ==
[2022-07-22 03:57] VITALS: PULSE 61
[2022-07-22 05:04] LABS: APPEARANCE,URINE SLIGHTLY CLOUDY (CLEAR); BILIRUBIN,URINE NEGATIVE (NEGATIVE); COLOR,URINE YELLOW; GLUCOSE,URINE NEGATIVE (NEGATIVE); KETONES,URINE NEGATIVE (NEGATIVE); LEUKOCYTE ESTERASE,URINE MODERATE (NEGATIVE); NITRITE,URINE NEGATIVE (NEGATIVE); OCCULT BLOOD,URINE LARGE (NEGATIVE); PROTEIN,URINE NEGATIVE (NEGATIVE); UROBILINOGEN,URINE 0.2 E.U./dL (0.2-1.0)
[2022-07-22 05:10] LABS: RBC,URINE 50-75 /HPF; WBC,URINE 20-30 /HPF
[2022-07-22 05:11] LABS: AMORPHOUS SEDIMENT,URINE FEW /HPF; BACTERIA,URINE RARE /HPF; EPITHELIAL CELLS,URINE FEW /HPF; MUCUS,URINE OCCASIONAL /HPF
[2022-07-22 05:48] VITALS: BP 155/87
== END 2022-07-22 05:35 | disposition home or self-care (01) ==
LOC: LB.ED 03:45
DX: T83.031A Leakage of indwelling urethral catheter, initial encounter (principal); G30.9 Alzheimer's disease, unspecified; F02.C0 Dementia in other diseases classified elsewhere, severe, without behavioral disturbance, psychotic disturbance, mood disturbance, and anxiety; Z88.0 Allergy status to penicillin
CPT/HCPCS: 51702; 81001; 99283

== ENCOUNTER 2022-12-06 13:54 | Emergency (ER) | payer MEDICARE ==
[2022-12-06 15:30] VITALS: BP 154/95; PULSE 65
== END 2022-12-06 16:33 | disposition home or self-care (01) ==
LOC: LB.ED 13:54
DX: T83.038A Leakage of other urinary catheter, initial encounter (principal); Z95.0 Presence of cardiac pacemaker; Z88.0 Allergy status to penicillin; Z79.899 Other long term (current) drug therapy
CPT/HCPCS: 51702; 99283; 99283-25